=== PATIENT | male | born 1955 | race Caucasian/White ===

== ENCOUNTER 2020-09-12 06:04 | Outpatient (REF) | payer BC, SELFPAY ==
[2020-09-12 11:41] LABS: Hematocrit 44.6 % (42-52); Hemoglobin 14.3 g/dl (14.0-18.0); Mean Corpuscular HGB Conc 32.1 g/dl (31.0-36.0); Mean Corpuscular Hemoglobin 28.2 pg (27.0-33.0); Mean Platelet Volume 10.7 fL (9.4-12.4); Platelet Count 271 X10*3/uL (160-400); Red Blood Count 5.07 X10*6/uL (4.60-5.80); Red Cell Distribution Width 13.4 % (11.0-16.0); White Blood Count 6.3 X10*3/uL (4.8-10.8)
[2020-09-12 11:50] LABS: Alanine Aminotransferase 24 U/L (0-40); Albumin Level 4.2 g/dL (3.5-5.0); Alkaline Phosphatase 129 U/L (39-117); Anion Gap 13 (12-20); Aspartate Amino Transferase 16 U/L (5-37); Bilirubin Total 1.1 mg/dL (0.0-1.0); Blood Urea Nitrogen 19 mg/dL (9-16); Carbon Dioxide 29 mmol/L (22-29); Chloride 103 mmol/L (96-108); Cholesterol 179 mg/dL; Estimated Glomerular Filt Rate > 60; Glucose Fasting 89 mg/dL (60-99); HDL Cholesterol 61 mg/dL; LDL Cholesterol Calculated 103 mg/dl; Potassium 4.1 mmol/l (3.3-5.1); Sodium 141 mmol/L (135-145); Total Protein 6.9 g/dL (6.5-8.0); Triglycerides 78 mg/dL
[2020-09-12 12:10] LABS: Prostate Specific Antigen Scr 1.36 ng/mL (<0.05-4.0)
[2020-09-12 16:50] LABS: Glucose Urine UA NEG (NEG); Leukocyte Esterase Urine NEG (NEG); Nitrite Urine NEG (NEG); PH 5.5 (5.0-8.0); Specific Gravity - Urine >= 1.030 (1.005-1.025); Urine Blood NEG (NEG); Urine Ketones NEG (NEG); Urine Protein NEG (NEG-TRACE)
[2020-09-12 16:56] LABS: Appearance Urine CLEAR; Color Urine YELLOW
== END 2020-09-12 06:05 | disposition home or self-care (01) ==
LOC: HO.HMGCLDS 06:04
PROVIDERS: PCP Internal Medicine; Visit Provider Internal Medicine
DX: Z00.00 Encounter for general adult medical examination without abnormal findings (principal); I10 Essential (primary) hypertension; E78.2 Mixed hyperlipidemia
CPT/HCPCS: 36415; 80053; 80061; 81003; 84153; 85027

== ENCOUNTER → 2021-01-04 13:52 | Outpatient (BNVA) | payer OTHER, SELFPAY | PROVIDERS: PCP Internal Medicine; Visit Provider Urology | DX: R35.1 Nocturia (principal); R31.0 Gross hematuria; N40.1 Benign prostatic hyperplasia with lower urinary tract symptoms | CPT/HCPCS: 99202 ==

== ENCOUNTER 2021-01-22 06:22 | Outpatient (REF) | payer MEDICARE, OTHER, SELFPAY ==
[2021-01-22 11:11] LABS: Urine Cytology See Pathology rpt
[2021-01-22 11:39] LABS: Blood Urea Nitrogen 24 mg/dL (9-16); Estimated Glomerular Filt Rate > 60
== END 2021-01-22 06:23 | disposition home or self-care (01) ==
LOC: HO.HMGCLDS 06:22
PROVIDERS: PCP Internal Medicine; Visit Provider Urology
DX: R31.0 Gross hematuria (principal); N26.1 Atrophy of kidney (terminal)
CPT/HCPCS: 36415; 82565; 84520; 88112

== ENCOUNTER 2021-01-25 07:56 | Outpatient (REF) | payer MEDICARE, OTHER, SELFPAY ==
--- NOTE | ~2021-01-25 | CT_ITS ---
EXAMINATION: CT ABDOMEN AND PELVIS WITHOUT AND WITH CONTRAST CLINICAL INFORMATION: Gross hematuria. COMPARISON: None. TECHNIQUE: Noncontrast CT of the abdomen and pelvis is performed followed by split bolus contrast-enhanced images using 85 mL Omnipaque 350 contrast.? Postcontrast imaging is performed during the combined nephrogram and excretion phase. Sagittal and coronal reformatted images were obtained on the technologist's workstation for both the precontrast and postcontrast phases. This CT examination was performed using dose optimization techniques as appropriate, variously including the following: *Automated exposure control *Adjustment of mA and/or kV according to patient size (this includes techniques or standardized protocols for targeted exams where dose is matched to indication/reason for exam; i.e. extremities or head) *Use of iterative reconstruction technique DLP: 974 mGy-cm FINDINGS: LUNG BASES: The heart size is normal. The lung bases are clear. There is minimal bibasilar posterior pleural fatty deposition. LIVER, GALLBLADDER, AND BILIARY TREE: The liver is normal in size, shape, and attenuation. No focal hepatic lesion or biliary ductal dilatation is present. The gallbladder is unremarkable with no evidence of radiopaque gallstones, gallbladder wall thickening, or obvious pericholecystic inflammatory changes. PANCREAS: The pancreas is homogeneous in density and normal size. SPLEEN: Unremarkable. ADRENAL GLANDS: Unremarkable. KIDNEYS AND URETERS: On the noncontrast CT, there is no radiopaque renal or ureteral calculi. Postcontrast, there is normal symmetric bilateral nephrogram with 2.3 cm and 1.5 cm cysts midpole left kidney. No enhancing renal mass or hydronephrosis seen. The left kidney measures 11.5 cm in length and right kidney measures 11.22 cm in length. There is good opacification of bilateral kidney pelvises and ureters without any intraluminal filling defect or narrowing. BLADDER: Contrast opacified bladder is unremarkable. GASTROINTESTINAL TRACT: There is scattered stool, diverticula and gas seen throughout the colon without mural thickening. The small bowel loops are normal caliber. Appendix is normal caliber. No inflammatory process seen in the abdomen. ABDOMINAL WALL: There is a small umbilical hernia containing fat. The rest of the abdominal wall appears unremarkable. LYMPH NODES: Normal. VASCULAR: The abdominal aorta is of normal caliber. PELVIC VISCERA: The prostate gland is mildly enlarged measuring 6 cm in length and 5.9 cm wide. OSSEUS STRUCTURES: There is mild ventral spondylosis lower dorsal and upper lumbar spine. No lytic process seen. CT/CT urogram IMPRESSION: No radiopaque urolith, hydroureteronephrosis seen. There are left renal cysts. Moderate prostate enlargement extending to the base of bladder. No bladder wall thickening seen. Colonic diverticulosis without diverticulitis.
== END 2021-01-25 07:57 | disposition home or self-care (01) ==
LOC: HO.CT 07:56
PROVIDERS: PCP Internal Medicine; Visit Provider Urology
DX: R31.0 Gross hematuria (principal)
CPT/HCPCS: 74178; Q9967

== ENCOUNTER → 2021-02-16 13:53 | Outpatient (BNVA) | payer MEDICARE, OTHER, SELFPAY | PROVIDERS: PCP Internal Medicine; Visit Provider Urology | DX: Z13.9 Encounter for screening, unspecified (principal); N40.1 Benign prostatic hyperplasia with lower urinary tract symptoms | CPT/HCPCS: 52000; 99212 ==

== ENCOUNTER → 2021-06-19 13:25 | Outpatient (BNVA) | payer MEDICARE, OTHER, SELFPAY | PROVIDERS: PCP Internal Medicine; Referring Provider Internal Medicine; Visit Provider Urology | DX: N40.1 Benign prostatic hyperplasia with lower urinary tract symptoms (principal); N48.6 Induration penis plastica | CPT/HCPCS: 99212 ==

== ENCOUNTER → 2021-11-02 08:59 | Outpatient (BNVA) | payer SELFPAY | PROVIDERS: PCP Internal Medicine; Visit Provider Internal Medicine | DX: Z02.79 Encounter for issue of other medical certificate (principal) ==

== ENCOUNTER 2021-11-22 07:18 | Outpatient (REF) | payer MEDICARE, OTHER, SELFPAY ==
[2021-11-22 11:24] LABS: Hematocrit 44.6 % (42.0-52.0); Hemoglobin 14.7 g/dl (14.0-18.0); Mean Corpuscular Hemoglobin 28.3 pg (27.0-33.0); Mean Corpuscular Volume 85.9 fL (80.0-98.0); Platelet Count 241 X10*3/uL (160-400); Red Blood Count 5.19 X10*6/uL (4.60-5.80); Red Cell Distribution Width 13.3 % (11.0-16.0); White Blood Count 5.5 X10*3/uL (4.8-10.8)
[2021-11-22 12:28] LABS: Alanine Aminotransferase 19 U/L (0-40); Albumin Level 3.8 g/dL (3.5-5.0); Alkaline Phosphatase 122 U/L (39-117); Anion Gap 9 (12-20); Aspartate Amino Transferase 14 U/L (5-37); Bilirubin Total 0.9 mg/dL (0.0-1.0); Blood Urea Nitrogen 21 mg/dL (9-16); Calcium 9.2 mg/dL (8.4-10.2); Carbon Dioxide 29 mmol/L (22-29); Chloride 107 mmol/L (96-108); Cholesterol 170 mg/dL; Estimated Glomerular Filt Rate > 60; Glucose Fasting 98 mg/dL (60-99); HDL Cholesterol 57 mg/dL; LDL Cholesterol Calculated 98 mg/dl; Potassium 4.1 mmol/L (3.3-5.1); Sodium 141 mmol/L (135-145); Total Protein 6.5 g/dL (6.5-8.0); Triglycerides 76 mg/dL
== END 2021-11-22 07:19 | disposition home or self-care (01) ==
LOC: HO.HMGCLDS 07:18
PROVIDERS: PCP Internal Medicine; Visit Provider Internal Medicine
DX: I10 Essential (primary) hypertension (principal); E78.00 Pure hypercholesterolemia, unspecified; N40.1 Benign prostatic hyperplasia with lower urinary tract symptoms
CPT/HCPCS: 36415; 80053; 80061; 85027

== ENCOUNTER → 2021-12-21 09:24 | Outpatient (BNVA) | payer MEDICARE, OTHER, SELFPAY | PROVIDERS: PCP Internal Medicine; Visit Provider Urology | DX: N40.1 Benign prostatic hyperplasia with lower urinary tract symptoms (principal); R35.1 Nocturia; K59.00 Constipation, unspecified | CPT/HCPCS: 99212 ==

== ENCOUNTER 2022-01-14 10:55 | Day surgery (SDC) | payer MEDICARE, OTHER, SELFPAY ==
[2022-01-04 13:54] VITALS: BMI 31.9
--- NOTE | 2022-01-11 12:24 | P.CONAN_ITS ---
Documented by User: Cynthia Erickson NP 01/11/22 12:25 HPI - Anesthesia Eval Consult details Narrative: 66yo M for Laser Ablation Prostate w/Green Light PMFSH Active Problems Active Problems: All Active Problems (Updated 01/04/22 @ 13:45 by Liam New, RN) Sebastián hematuria (Acute) Gross hematuria (Acute) BPH loc w urin obs/LUTS (Acute) Nocturia more than twice per night (Acute) Peyronie's disease (Acute) Constipation (Acute) Colon cancer screening (Acute) Hypercholesterolemia (Acute) HTN (hypertension) (Acute) Past Medical History Medical History (Updated 01/04/22 @ 13:45 by Lima New, NEEL) Anxiety Colon cancer screening Generalized anxiety disorder HTN (hypertension) Hypercholesterolemia Obesity Squamous cell skin cancer, face Family History Family History Father S/P triple vessel bypass Liver failure Kidney failure CVD (cardiovascular disease) HTN (hypertension) Mother CVD (cardiovascular disease) Stroke Maternal Grandfather COPD (chronic obstructive pulmonary disease) Paternal Grandfather Pneumonia Sister No problems noted. Sister No problems noted. Son No problems noted. Surgical History Surgical History History of colonoscopy Social History Social History Housing: House Are you a primary daytime caregiver to a significant other at home: No Do you presently have visiting nurse or other home services: No Alcohol intake: current Alcohol intake frequency: does not drink Patient Tobacco Use Status: Never used Tobacco e-Cigarette/Vaping Use: Never Used Second Hand Smoke Exposure: No service: No Current occupational status: retired [employer] Allergies Allergy/AdvReac Type Severity Reaction Status Date / Time No Known Allergies Allergy Verified 01/04/22 13:34 Exam Exam Date and Time: January 11, 2022 1224 Height,Weight and Vital Signs: Height 5 ft 11 in Weight 103.873 kg Pertinent Lab Results Pertinent Lab Results: Laboratory Tests 11/22/21 11/22/21 07:42 07:42 WBC 5.5 Hgb 14.7 Hct 44.6 Plt Count 241 Sodium 141 Potassium 4.1 Chloride 107 Carbon Dioxide 29 BUN 21 H Creatinine 1.11 Assessment and Plan Assessment Anesthesia Assessment: Chart Reviewed Documented by User: Bob Richardson MD 01/14/22 16:14 [facility] Past Medical History Medical History (Updated 01/04/22 @ 13:45 by Lima New, NEEL) Anxiety Colon cancer screening Generalized anxiety disorder HTN (hypertension) Hypercholesterolemia Obesity Squamous cell skin cancer, face Functional capacity: independent ambulation Family History Family History Father S/P triple vessel bypass Liver failure Kidney failure CVD (cardiovascular disease) HTN (hypertension) Mother CVD (cardiovascular disease) Stroke Maternal Grandfather COPD (chronic obstructive pulmonary disease) Paternal Grandfather Pneumonia Sister No problems noted. Sister No problems noted. Son No problems noted. Family history of problems with anesthesia: No Surgical History Surgical History History of colonoscopy History of Problems with Anesthesia: No Social History Social History Housing: House Are you a primary daytime caregiver to a significant other at home: No Do you presently have visiting nurse or other home services: No Alcohol intake: current Alcohol intake frequency: does not drink Patient Tobacco Use Status: Never used Tobacco e-Cigarette/Vaping Use: Never Used Second Hand Smoke Exposure: No service: No Current occupational status: retired Meds Allergies Allergy/AdvReac Type Severity Reaction Status Date / Time No Known Allergies Allergy Verified 01/04/22 13:34 Exam Airway Mallampati Class: II TM Dist: >3cm Neck ROM: Full Loose/Missing/Broken Teeth: Yes Heart: rrr Lungs: bl breath sounds Assessment and Plan Assessment Anesthesia Assessment: Anesthesia Plan Discussed Final Anesthetic Review Family History of Problems with Anesthesia: No History of Problems with Anesthesia: No NPO: Yes ASA Class: III Final Preanesthetic Review: Meds/Allgs Chart Reviewed, Consent Obtained/Reviewed and Anes Risks/Benef Reviewed Patient Risk: Intermediate Procedure Risk: Intermediate Anesthetic Plan Anesthetic Plan: GA Disposition: Standard PACU
[2022-01-14] VITALS (7 sets, daily range): BP systolic 122–152; BP diastolic 69–101; PULSE 74–99; RESP 16–18; TEMP 36.7–37.1; O2SAT 93–98
[2022-01-14] MEDS: Lactated Ringers 1,000 ML 100 ML IVCONT (11:15)
--- NOTE | 2022-01-14 11:32 | MHC.SHP ---
Pre-Procedural Eval Section A Date of Service: 01/14/22 The patient is an INPATIENT: No Changes since office visit: No Cold of Flu in the past 2 weeks, No New Medical Problems, No Changes in Medication and No Patient answered all questions The History & Physical has been completed within 30 days and I have reviewed it.: No Section B Chief Complaint: benign prostatic hyperplasia Details of Present Illness: failed to respond to oral medications Relevant Family History (Specify if Yes): No Relevant Social History: None Present Medications: see Short Stay Collaborative assessment Medical History: No relevant PMH History of Previous Operations: No relevant previous surgery Allergies: Allergies Allergy/AdvReac Type Severity Reaction Status Date / Time No Known Allergies Allergy Verified 01/04/22 13:34 Review of Systems Sugical H&P ROS: Negative: Constitution, Cardiovascular, Respiratory, Neurological, Psychiatric, Hem-Onc, Allergic/Immunologic, Gastrointestinal, Genitourinary, Musculoskeletal, Integumentary, Endocrine and Eyes/Ears/Nose/Throat Exam Surgical H&P Exam: Normal: HEENT, Normal: Heart, Normal: Lungs, Normal: Extremities, Normal: Abdomen, Normal: Skin and Normal: Neurological Plan Diagnosis/Plan: Unchanged ( cystoscopy with GreenLight laser enucleation of prostate) I have reviewed the history and physical and performed a pertinent physical examination on my patient. No changes have occurred unless specified.
--- NOTE | 2022-01-14 12:55 | W.PM.OPN ---
Operative Note Operative Note Date of Service: 01/14/22 Narrative: PreOperative Diagnosis: Bladder outlet obstruction Post Operative Diagnosis: Bladder outlet obstruction Procedure: GreenLight Laser Enucleation of the prostate Surgeon: Dr Ovidio Marin Anesthesia: General Indications for procedure: 66-year-old male with poor response now to History of bladder outlet obstruction. Treated with alpha-jocelyn and other medications. Still with symptoms. On cystoscopy in office has trilobar hypertrophy. Recommendation for prostate procedure with laser enucleation of prostate. It has been discussed. Focus was placed on development of retrograde examination which is a normal part of this procedure. Procedure: After informed consent was verified the patient was brought to the operating room and placed in a supine position. Anesthesia was administered per protocol. Patient was placed in modified dorsal lithotomy position and prepped and draped in a sterile fashion. Safety pause time-out was confirmed. Antibiotics have been given. Twenty-four Bulgarian laser cystoscope was inserted per urethra. No abnormalities found the anterior posterior urethra. The bladder was filled on both ureteric orifices were seen in normal position away from our area of interest. Using a GreenLight laser settings of 80 w incisions were made at the 5 and 7 o'clock position. They were taken down and then laterally on each side. They were brought from the bladder neck down to the level of the veru. These defined the lateral aspects of the median lobe area. The median lobe was ablated and enucleated tissue removed. Once the median lobe area had been cleaned attention was directed to the lateral lobes. We started with the patient's left lateral lobe. Firstly the 05:00 o'clock groove was further developed. This was moved in the lateral position to undermine the tissue on the lateral side. Focus was then placed on the laser at the 1 o'clock position in developing a secondary groove down to the level of bladder fibers. The intervening tissue between these 2 grooves was removed with a combination of enucleation ablation working from the apex toward the bladder neck. A similar procedure was repeated on the patient's right-hand side. When this was completed debris and pieces of prostate removed from the bladder. Both ureteric orifices were reviewed again in shown to be patent in away from any areas of energy damage. The apical area was reviewed in any stray ooze was controlled. A 22 Bulgarian 30 cc balloon Maria catheter was placed over stylet into the bladder. Clear efflux was obtained. 30 cc was placed in the balloon and gentle traction was placed. A snap was used to hold tension once the patient will be moved and transported. Once transportation its finish this novel be removed. A belladonna and opiate suppository was placed for postprocedure pain management. He tolerated procedure well was extubated in the operating and transferred in a stable condition to the recovery area. Total power 197 kW Pathology: Prostate tissue Drains: Maria catheter
[2022-01-14] MEDS: Acetaminophen 325 MG TABLET 650 MG PO (13:15)
== END 2022-01-14 14:23 | disposition home or self-care (01) ==
PROVIDERS: PCP Internal Medicine; Visit Provider Urology
PROC: (CPT 52648; principal; 2022-01-14 13:10)
DX: N40.1 Benign prostatic hyperplasia with lower urinary tract symptoms (principal); R35.1 Nocturia; N13.8 Other obstructive and reflux uropathy; R31.0 Gross hematuria; K59.00 Constipation, unspecified; N28.1 Cyst of kidney, acquired; I10 Essential (primary) hypertension; E78.00 Pure hypercholesterolemia, unspecified; Z85.828 Personal history of other malignant neoplasm of skin; Z79.899 Other long term (current) drug therapy
CPT/HCPCS: 52649; 88305; J1100; J1956; J2250; J2370; J2405; J3010

== ENCOUNTER → 2022-01-17 09:55 | Outpatient (BNVA) | payer MEDICARE, OTHER, SELFPAY | PROVIDERS: PCP Internal Medicine; Visit Provider Urology | DX: N40.1 Benign prostatic hyperplasia with lower urinary tract symptoms (principal) | CPT/HCPCS: 51700; 51798 ==

== ENCOUNTER → 2022-02-19 10:42 | Outpatient (BNVA) | payer MEDICARE, OTHER, SELFPAY | PROVIDERS: PCP Internal Medicine; Visit Provider Urology | DX: N40.1 Benign prostatic hyperplasia with lower urinary tract symptoms (principal); R35.1 Nocturia; R39.12 Poor urinary stream | CPT/HCPCS: 51798; 99212 ==

== ENCOUNTER 2022-06-03 08:46 | Outpatient (REF) | payer MEDICARE, OTHER, SELFPAY ==
[2022-06-03 11:38] LABS: Anion Gap 11 (12-20); Blood Urea Nitrogen 25 mg/dL (9-16); Calcium 8.8 mg/dL (8.4-10.2); Carbon Dioxide 27 mmol/L (22-29); Chloride 107 mmol/L (96-108); Estimated Glomerular Filt Rate > 60; Glucose Random 82 mg/dL (60-115); Potassium 3.9 mmol/L (3.3-5.1); Sodium 141 mmol/L (135-145)
== END 2022-06-03 08:47 | disposition home or self-care (01) ==
LOC: HO.HMGCLDS 08:46
PROVIDERS: PCP Internal Medicine; Visit Provider Internal Medicine
DX: E78.00 Pure hypercholesterolemia, unspecified (principal); I10 Essential (primary) hypertension
CPT/HCPCS: 36415; 80048

== ENCOUNTER 2022-09-17 06:51 | Outpatient (REF) | payer MEDICARE, OTHER, SELFPAY ==
[2022-09-17 13:34] LABS: Prostate Specific Antigen 0.65 ng/mL (<0.05-4.0)
== END 2022-09-17 06:52 | disposition home or self-care (01) ==
LOC: HO.CHCLDS 06:51
PROVIDERS: PCP Internal Medicine; Visit Provider Urology
DX: N40.1 Benign prostatic hyperplasia with lower urinary tract symptoms (principal); N13.8 Other obstructive and reflux uropathy; Z12.5 Encounter for screening for malignant neoplasm of prostate
CPT/HCPCS: 36415; 84153

== ENCOUNTER → 2022-09-27 08:55 | Outpatient (BNVA) | payer MEDICARE, OTHER, SELFPAY | PROVIDERS: PCP Internal Medicine; Visit Provider Urology | DX: N40.1 Benign prostatic hyperplasia with lower urinary tract symptoms (principal); R39.12 Poor urinary stream; R35.1 Nocturia | CPT/HCPCS: Q3014 ==

== ENCOUNTER 2023-01-30 07:00 | Outpatient (REF) | payer MEDICARE, OTHER, SELFPAY | END 2023-01-30 07:01 | disposition home or self-care (01) | LOC: HO.HMGCLDS 07:00 | PROVIDERS: PCP Internal Medicine; Visit Provider Urology | DX: Z12.5 Encounter for screening for malignant neoplasm of prostate (principal); N40.1 Benign prostatic hyperplasia with lower urinary tract symptoms | CPT/HCPCS: 36415; 84153 ==

== ENCOUNTER → 2023-02-04 14:07 | Outpatient (BNVA) | payer MEDICARE, OTHER, SELFPAY | PROVIDERS: PCP Internal Medicine; Visit Provider Urology | DX: N40.1 Benign prostatic hyperplasia with lower urinary tract symptoms (principal); N13.8 Other obstructive and reflux uropathy; R35.1 Nocturia; N48.6 Induration penis plastica | CPT/HCPCS: 51798; 99212 ==

== ENCOUNTER 2023-09-08 08:29 | Outpatient (REF) | payer MEDICARE, OTHER, SELFPAY ==
[2023-09-08 11:42] LABS: MANUAL DIFF FLAG NO
[2023-09-08 12:13] LABS: Alanine Aminotransferase 25 U/L (0-40); Albumin Level 3.9 g/dL (3.5-5.0); Alkaline Phosphatase 125 U/L (39-117); Anion Gap 11 (12-20); Aspartate Amino Transferase 20 U/L (5-37); Bilirubin Total 0.8 mg/dL (0.0-1.0); Blood Urea Nitrogen 20 mg/dL (9-16); Calcium 9.4 mg/dL (8.4-10.2); Carbon Dioxide 28 mmol/L (22-29); Chloride 107 mmol/L (96-108); Cholesterol 176 mg/dL (<200); Estimated Glomerular Filt Rate > 60; Glucose Fasting 87 mg/dL (60-99); HDL Cholesterol 53 mg/dL (>40); LDL Cholesterol Calculated 106 mg/dL (<100); Potassium 4.2 mmol/L (3.3-5.1); Sodium 142 mmol/L (135-145); Total Protein 6.8 g/dL (6.5-8.0); Triglycerides 88 mg/dL (<150)
[2023-09-08 12:22] LABS: Basophils Absolute Auto 0.1 X10*3/uL (0.0-0.2); Basophils Percent Auto 1.3 % (0-2); Eosinophils Absolute Auto 0.1 X10*3/uL (0.0-0.4); Eosinophils Percent Auto 1.8 % (0-4); Hematocrit 44.7 % (42.0-52.0); Hemoglobin 14.7 g/dl (14.0-18.0); Imm Gran Abs Auto 0.02 X10*3/uL (0.00-0.03); Imm Gran Pct Auto 0.3 % (0.0-0.4); Lymphocytes Absolute Auto 1.9 X10*3/uL (1.2-4.9); Lymphocytes Percent Auto 26.7 % (20-40); Mean Corpuscular HGB Conc 32.9 g/dl (31.0-36.0); Mean Corpuscular Hemoglobin 28.6 pg (27.0-33.0); Mean Platelet Volume 10.7 fL (9.4-12.4); Monocytes Absolute Auto 0.5 X10*3/uL (0.1-1.2); Monocytes Percent Auto 6.7 % (2-11); Neutrophils Absolute Auto 4.4 x10*3/uL (2.0-8.3); Neutrophils Percent Auto 63.2 % (45-73); Platelet Count 270 X10*3/uL (160-400); Red Blood Count 5.14 X10*6/uL (4.60-5.80); Red Cell Distribution Width 13.4 % (11.0-16.0)
== END 2023-09-08 08:30 | disposition home or self-care (01) ==
LOC: HO.HMGCLDS 08:29
PROVIDERS: PCP Internal Medicine; Visit Provider Internal Medicine
DX: I10 Essential (primary) hypertension (principal); E78.00 Pure hypercholesterolemia, unspecified
CPT/HCPCS: 36415; 80053; 80061; 85025

== ENCOUNTER 2023-09-09 11:06 | Outpatient (AMB) | payer MEDICARE, OTHER, SELFPAY ==
[2023-09-09 11:14] VITALS: BP 128/84; PULSE 84; O2SAT 96; BMI 31.8
--- NOTE | 2023-09-09 11:14 | A.OFFPC_ITS ---
Vital Signs 09/09/23 11:14 Height 5 ft 11 in Weight 228 lb BMI 31.8 BP 128/84 Blood Pressure Location Lt brachial Position Sitting Pulse 84 Pulse Source Pulse Oximeter Pulse Oximetry (%) 96 Oxygen Delivery Method Room Air Intake Visit Reasons: 9 month f/u Intake Note: Pt is here today for a follow up visit after labs. Allergies No Known Allergies Allergy (Verified 09/09/23 11:16) Medication List - Last Reconciled 09/09/23 by Kerry Mooney MD amlodipine 5 mg PO DAILY atorvastatin 20 mg PO DAILY olmesartan 20 mg PO DAILY paroxetine HCl 10 mg PO DAILY Tobacco use date assessed: 09/09/23 Fall risk assessment: No Falls in past year Last assessed Fall Risk: 09/09/23 Dental Screening Dental Screen Date: 09/09/23 Did you have a dental visit in the last 12 months?: Yes Did you have a dental problem in the last 6 months where you did not have access to dental care?: No Was dental information given to patient?: Patient has dentist HPI 9 month f/u HPI Details Patient presents for the follow-up of hypertension hyperlipidemia. [facility] Medical History (Updated 09/09/23 @ 12:43 by Kerry Mooney MD) Anxiety Colon cancer screening Squamous cell skin cancer, face Obesity Generalized anxiety disorder Hypercholesterolemia HTN (hypertension) Surgical History History of colonoscopy Family History Father S/P triple vessel bypass Liver failure Kidney failure CVD (cardiovascular disease) HTN (hypertension) Mother CVD (cardiovascular disease) Stroke Maternal Grandfather COPD (chronic obstructive pulmonary disease) Paternal Grandfather Pneumonia Sister No problems noted. Sister No problems noted. Son No problems noted. Social History Housing: House Are you a primary hospice care sales consultant to a significant other at home: No Do you presently have visiting nurse or other home services: No Alcohol intake: current Alcohol intake frequency: does not drink Patient Tobacco Use Status: Never used Tobacco e-Cigarette/Vaping Use: Never Used Second Hand Smoke Exposure: No service: No Current occupational status: retired Cognitive needs: No Hearing needs: No Vision needs: No Questionnaire Thrive Questionnaire Date Thrive assessed: 12/04/21 AUDIT C Alcohol Use Questionnaire (AUDIT-C) 1. How often do you have a drink containing alcohol?: 2-4 times a month 2. How many drinks containing alcohol do you have on a typical day when you are drinking?: 1 or 2 3. How often do you have six or more drinks on one occasion?: Never Total Score: 2 LILIA-7 AMB Questionnaire LILIA-7 Date LILIA - 7 assessed: 12/02/22 Feeling nervous, anxious, or on edge: 0 = Not at all Not being able to stop or control worryin = Not at all Worrying too much about different things: 0 = Not at all Trouble relaxin = Not at all Being so restless that it is hard to sit still: 0 = Not at all Becoming easily annoyed or irritable: 0 = Not at all Feeling afraid as if something awful might happen: 0 = Not at all Total ILLIA-7 score (0-4 normal; 5-9 mild; 10-14 moderate; 15-21 severe): 0 Source: Developed by Drs. Rafa Dee, Blaire Mas, Rc Ying and colleagues, with an educational mayelin from [employer]. Review of Systems Const All systems reviewed & are unremarkable except as noted in HPI and below Reports no additional complaints Eyes Reports no additional complaints ENT Reports no additional complaints Card Reports no additional complaints Resp Reports no additional complaints GI Reports no additional complaints Reports no additional complaints Physical exam (Primary Care) Vital Signs: Last Vital Signs Pulse 84 09/09/23 11:14 BP 128/84 09/09/23 11:14 Pulse Ox 96 09/09/23 11:14 Oxygen Delivery Method Room Air 09/09/23 11:14 BMI result Body Mass Index 31.8 Tobacco/Smoking Status: Tobacco use Status Tobacco use date assessed 09/09/23 09/09/23 11:18 Patient Tobacco Use Status Never used Tobacco 09/09/23 11:18 e-Cigarette/Vaping Use Never Used 09/09/23 11:18 Thrive Assessment: Date of Thrive Assessment Date Thrive assessed 12/04/21 09/09/23 11:18 Const General: no acute distress Neck Neck: Yes no lymphadenopathy and Yes supple Resp Effort & Inspection: normal respiratory effort Auscultation: clear to auscultation bilaterally Cardio Rhythm: regular rhythm Heart sounds: S1 normal heart sound present and S2 normal heart sound present GI Inspection: Yes normal to inspection Palpation (GI): Soft to palpation Percussion: Yes normal to percussion Auscultation: normal bowel sounds Assessment and Plan Assessment & Plan (1) Hypercholesterolemia: Code(s): E78.00 - Pure hypercholesterolemia, unspecified Plan: Increase atorvastatin to 20 mg a day, continue low-cholesterol diet regular exercise and weight loss discussed with the patient (2) HTN (hypertension): Code(s): I10 - Essential (primary) hypertension Plan: Continue current medications. Patient will have CT calcium score to evaluate for coronary artery disease (3) Colon cancer screening: Comment: negative alda 09/2019, 01/09 Code(s): Z12.11 - Encounter for screening for malignant neoplasm of colon Orders: Orders Lipid Panel 6 Months E78.00 - Pure hypercholesterolemia, unspecified, I10 - Essential (primary) hypertension CT Coronary Calcium Score Today E78.00 - Pure hypercholesterolemia, unspecified, I10 - Essential (primary) hypertension Comprehensive Orange. Panel Fast 6 Months E78.00 - Pure hypercholesterolemia, unspecified, I10 - Essential (primary) hypertension Complete Blood Count Auto Diff 6 Months E78.00 - Pure hypercholesterolemia, unspecified, I10 - Essential (primary) hypertension Medications: New atorvastatin 20 mg PO DAILY 90 tabs 0RF Discontinued atorvastatin Discontinued Reason: Duplicate 10 mg PO DAILY 90 tabs 3RF E78.00 - Pure hypercholesterolemia, unspecified Coding Level of Care Code Est Pt Level 3 (99526) Diagnoses Hypercholesterolemia E78.00 HTN (hypertension) I10 Colon cancer screening Z12.11
== END 2023-09-09 12:22 | disposition home or self-care (01) ==
PROVIDERS: PCP Internal Medicine; Visit Provider Internal Medicine
DX: E78.00 Pure hypercholesterolemia, unspecified (principal); I10 Essential (primary) hypertension; Z12.11 Encounter for screening for malignant neoplasm of colon
CPT/HCPCS: 99213

== ENCOUNTER 2024-02-06 07:14 | Outpatient (REF) | payer MEDICARE, OTHER, SELFPAY ==
[2024-02-06 11:19] LABS: Prostate Specific Antigen 0.88 ng/mL (<0.05-4.0)
== END 2024-02-06 07:15 | disposition home or self-care (01) ==
LOC: HO.HMGCLDS 07:14
PROVIDERS: PCP Internal Medicine; Visit Provider Urology
DX: Z12.5 Encounter for screening for malignant neoplasm of prostate (principal); N40.1 Benign prostatic hyperplasia with lower urinary tract symptoms
CPT/HCPCS: 36415; 51798; 84153; 99212

== ENCOUNTER 2024-02-06 08:20 | Outpatient (AMB) | payer MEDICARE, OTHER, SELFPAY ==
--- NOTE | 2024-02-06 08:21 | A.OFFVIS_ITS ---
Intake Intake Visit Reasons: 1y/PVR Intake Note: Patient is Present for Follow Up PVR Last Visit: January 2023 Urology Medication: None Antibiotic Allergies: None Blood Thinners:None Confirmed Pharmacy: [facility] PVR: 82 Allergies No Known Allergies Allergy (Verified 02/06/24 08:22) Medication List - Last Reconciled 02/06/24 by Ovidio Marin MD amlodipine 5 mg PO DAILY atorvastatin 20 mg PO DAILY olmesartan 20 mg PO DAILY paroxetine HCl 10 mg PO DAILY HPI HPI Comments History of Present Illness Details Cayden is a very pleasant male. He is a patient of Dr. Joseph. He is seen for the following urologic issues - lower urinary tract symptoms - gross hematuria - erectile dysfunction Concerns regarding leakage at the end of urination Information provided regarding male pelvic floor exercises Progressive erectile dysfunction which we had discussed previously Initiate tadalafil and pentoxifylline for Peyronie's Three-month follow-up Gross hematuria Episode October 2020 Resolved after 3 voids with urine Hematuria at the end of urination Risk factors Nonsmoker No known work place exposure. 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 [employer] - CT 02/04 renal cyst 2 cm cyst right side, left side normal Lower urinary tract symptoms Greenlight ARA - 02/05 Prior therapy tamsulosin not effective Cystoscopy - 02/04 enlarged prostate with neovascularity PSA 09/05 1.4, 10/08 0.65, 02/06 0.8 Peyronie's disease 40 degree deviation to right-side Printed information provided previously [facility] Medical History Anxiety Colon cancer screening Squamous cell skin cancer, face Obesity Generalized anxiety disorder Hypercholesterolemia HTN (hypertension) Surgical History History of colonoscopy Family History Father S/P triple vessel bypass Liver failure Kidney failure CVD (cardiovascular disease) HTN (hypertension) Mother CVD (cardiovascular disease) Stroke Maternal Grandfather COPD (chronic obstructive pulmonary disease) Paternal Grandfather Pneumonia Sister No problems noted. Sister No problems noted. Son No problems noted. Social History Housing: House Are you a primary child care worker to a significant other at home: No Do you presently have visiting nurse or other home services: No Alcohol intake: current Alcohol intake frequency: does not drink Patient Tobacco Use Status: Never used Tobacco e-Cigarette/Vaping Use: Never Used Second Hand Smoke Exposure: No service: No Current occupational status: retired Cognitive needs: No Hearing needs: No Vision needs: No Review of Systems Const Denies chills and Denies fever(s) Card Reports no additional complaints and Denies syncope Resp Denies cough GI Denies abdominal pain and Denies heartburn Reports as per HPI and Denies change in libido Neuro Denies syncope Psych Denies change in libido Endo Denies change in libido Physical Exam Const General: cooperative, healthy appearing, comfortable and no acute distress Orientation/consciousness: patient oriented x3 HEENT Face and sinus: Yes normal facial exam Mouth: moist mucous membranes Neck Neck: Yes normal visual inspection, Yes full ROM and Yes trachea midline Chest Chest palpation & inspection: normal inspection of the chest Resp Effort & Inspection: normal respiratory effort, able to speak in complete sentences and no respiratory distress GI Inspection: Yes normal to inspection Back/Spine/Pelvis Cervical Spine: normal cervical lordosis Thoracic/Lumbar Spine: thoracic and lumbar spine normal to inspection Skin General skin exam: no rashes or lesions noted Neuro General: patient oriented x3, gait normal, tone normal and moves all extremities Extrem General: Yes normal to inspection and Yes capillary refill normal Office Procedures Post Void Residual Post Residual Void Post Void Residual (PVR): 82 [id number] Void Residual by ultrasound Assessment & Plan Assessment & Plan (1) Erectile dysfunction: Code(s): N52.9 - Male erectile dysfunction, unspecified (2) Weak urinary stream: Code(s): R39.12 - Poor urinary stream (3) Peyronie's disease: Code(s): N48.6 - Induration penis plastica Plan Trial tadalafil and pentoxifylline Orders: Orders AMB Post Void Residual by ultrasound Today N40.1 - Benign prostatic hyperplasia with lower urinary tract symptoms Medications: New tadalafil 5 mg PO DAILY 90 tabs 0RF sexual activity 90 days N52.9 - Male erectile dysfunction, unspecified pentoxifylline ER administer with meals 400 mg PO BID 180 tabs 1RF 90 days N52.9 - Male erectile dysfunction, unspecified Patient Instructions: Imaging studies, laboratory and physical exam results were discussed and reviewed in detail. No major barriers to patient understanding were identified. An opportunity to ask questions regarding the treatment plan was provided. All questions were answered. The patient expressed understanding and agreement with the above treatment plan. The patient is aware they should contact our office by phone for worsening of their current condition or the appearance of new urologic symptoms. Compliance is encouraged with any medications and followup testing that is ordered. It is a privilege to participate in the urologic care of your patient. If you have any questions or concerns regarding treatment for the above conditions, or other urologic issues, please do not hesitate to contact me. The office telephone contact is [phone]. This note is constructed using voice recognition software. While every effort has been made to ensure accuracy licensed and certified midwife errors may have been included. Yours sincerely, Dr Ovidio Marin MD, [facility] - Urology Providers of Expert, Compassionate Care for the Genitourinary System Coding Level of Care Code Est Pt Level 4 (83108) Diagnoses Erectile dysfunction N52.9 Weak urinary stream R39.12 Peyronie's disease N48.6 CPT Codes Post Residual Void - PVR CPT Code: [id number] Void Residual by ultrasound ([id number])
== END 2024-02-06 08:58 | disposition home or self-care (01) ==
PROVIDERS: Visit Provider Urology
DX: N52.9 Male erectile dysfunction, unspecified (principal); R39.12 Poor urinary stream; N48.6 Induration penis plastica
CPT/HCPCS: 99214

== ENCOUNTER 2024-03-17 08:10 | Outpatient (REF) | payer MEDICARE, OTHER, SELFPAY ==
[2024-03-17 10:36] LABS: MANUAL DIFF FLAG NO
[2024-03-17 10:42] LABS: Hematocrit 44.9 % (42.0-52.0); Imm Gran Abs Auto 0.03 X10*3/uL (0.00-0.03); Lymphocytes Absolute Auto 1.7 X10*3/uL (1.2-4.9); Mean Corpuscular Hemoglobin 28.9 pg (27.0-33.0); Mean Corpuscular Volume 86.5 fL (80.0-98.0); Platelet Count 262 X10*3/uL (160-400); Red Blood Count 5.19 X10*6/uL (4.60-5.80); White Blood Count 7.4 X10*3/uL (4.8-10.8)
[2024-03-17 11:28] LABS: Alkaline Phosphatase 134 U/L (39-117); Bilirubin Total 0.8 mg/dL (0.0-1.0); Blood Urea Nitrogen 20 mg/dL (9-16); Calcium 9.3 mg/dL (8.4-10.2); Chloride 106 mmol/L (96-108); Cholesterol 150 mg/dL (<200); Estimated Glomerular Filt Rate > 60; Glucose Fasting 88 mg/dL (60-99); HDL Cholesterol 49 mg/dL (>40); LDL Cholesterol Calculated 84 mg/dL (<100); Potassium 4.2 mmol/L (3.3-5.1); Sodium 143 mmol/L (135-145); Triglycerides 89 mg/dL (<150)
== END 2024-03-17 08:11 | disposition home or self-care (01) ==
LOC: HO.HMGCLDS 08:10
PROVIDERS: PCP Internal Medicine; Visit Provider Internal Medicine
DX: E78.00 Pure hypercholesterolemia, unspecified (principal); I10 Essential (primary) hypertension
CPT/HCPCS: 36415; 80053; 80061; 85025

== ENCOUNTER 2024-03-19 09:52 | Outpatient (AMB) | payer MEDICARE, OTHER, SELFPAY ==
--- NOTE | 2024-03-19 09:54 | MHC.PC.OV ---
Vital Signs 03/19/24 09:55 Height 5 ft 11 in Weight 225 lb BMI 31.4 BP 118/72 Blood Pressure Location Rt brachial Position Sitting Pulse 78 Pulse Source Pulse Oximeter Pulse Oximetry (%) 95 Oxygen Delivery Method Room Air Intake Visit Reasons: 6 Month follow up Intake Note: Pt is here today for 6 months follow up visit. Allergies No Known Allergies Allergy (Verified 03/19/24 09:57) Medication List - Last Reconciled 03/19/24 by Kerry Mooney MD amlodipine 5 mg PO DAILY atorvastatin 20 mg PO DAILY olmesartan 20 mg PO DAILY paroxetine HCl 10 mg PO DAILY pentoxifylline ER 400 mg PO BID 90 days tadalafil 5 mg PO DAILY 90 days Tobacco use date assessed: 03/19/24 Fall risk assessment: No Falls in past year Last assessed Fall Risk: 03/19/24 Dental Screening Dental Screen Date: 03/19/24 Did you have a dental visit in the last 12 months?: Yes Did you have a dental problem in the last 6 months where you did not have access to dental care?: No Was dental information given to patient?: Patient has dentist HPI 6 Month follow up HPI Details Patient presents for the follow-up on hypertension hyperlipidemia chronic anxiety stable on current medications. Patient follows up with urologist for BPH/ urinary incontinence/Peyronie disease. Patient complains of right-sided upper thigh pain worse when walking longer distance. He denies lower back pain,weakness or numbness in extremities PFSH Medical History Anxiety Colon cancer screening Squamous cell skin cancer, face Obesity Generalized anxiety disorder Hypercholesterolemia HTN (hypertension) Surgical History History of colonoscopy Family History Father S/P triple vessel bypass Liver failure Kidney failure CVD (cardiovascular disease) HTN (hypertension) Mother CVD (cardiovascular disease) Stroke Maternal Grandfather COPD (chronic obstructive pulmonary disease) Paternal Grandfather Pneumonia Sister No problems noted. Sister No problems noted. Son No problems noted. Social History Housing: House Are you a primary director medicare sales to a significant other at home: No Do you presently have visiting nurse or other home services: No Alcohol intake: current Alcohol intake frequency: does not drink Patient Tobacco Use Status: Never used Tobacco e-Cigarette/Vaping Use: Never Used Second Hand Smoke Exposure: No service: No Current occupational status: retired Cognitive needs: No Hearing needs: No Vision needs: No Questionnaire Thrive Questionnaire Date Thrive assessed: 12/04/21 AUDIT C Alcohol Use Questionnaire (AUDIT-C) 1. How often do you have a drink containing alcohol?: 2-4 times a month 3. How often do you have six or more drinks on one occasion?: Never Total Score: 2 LILIA-7 AMB Questionnaire LILIA-7 Date LILIA - 7 assessed: 12/02/22 Feeling nervous, anxious, or on edge: 0 = Not at all Not being able to stop or control worryin = Not at all Worrying too much about different things: 0 = Not at all Trouble relaxin = Not at all Being so restless that it is hard to sit still: 0 = Not at all Becoming easily annoyed or irritable: 0 = Not at all Feeling afraid as if something awful might happen: 0 = Not at all Total LILIA-7 score (0-4 normal; 5-9 mild; 10-14 moderate; 15-21 severe): 0 Source: Developed by Drs. Rafa Dee, Blaire Mas, Rc Ying and colleagues, with an educational mayelin from [employer]. Review of Systems Const All systems reviewed & are unremarkable except as noted in HPI and below Eyes Reports no additional complaints ENT Reports no additional complaints Card Reports no additional complaints Resp Reports no additional complaints GI Reports no additional complaints Reports no additional complaints Physical exam (Primary Care) Vital Signs: Last Vital Signs Pulse 78 03/19/24 09:55 BP 118/72 03/19/24 09:55 Pulse Ox 95 03/19/24 09:55 Oxygen Delivery Method Room Air 03/19/24 09:55 BMI result Body Mass Index 31.4 Tobacco/Smoking Status: Tobacco use Status Tobacco use date assessed 03/19/24 03/19/24 10:00 Patient Tobacco Use Status Never used Tobacco 03/19/24 10:00 e-Cigarette/Vaping Use Never Used 03/19/24 09:55 Thrive Assessment: Date of Thrive Assessment Date Thrive assessed 12/04/21 03/19/24 09:55 Const General: no acute distress HENMT Head: Yes normal to inspection Ears: hearing grossly normal bilaterally General nose exam: Normal external nose present Face and sinus: Yes normal facial exam Mouth: Normal oral and palatal mucosa present Teeth and gingiva: dentition normal Eyes General: appearance normal, both eyes and all related structures Neck Neck: Yes no lymphadenopathy and Yes supple Resp Effort & Inspection: normal respiratory effort Auscultation: clear to auscultation bilaterally Cardio Rhythm: regular rhythm Heart sounds: S1 normal heart sound present and S2 normal heart sound present GI Inspection: Yes normal to inspection Palpation (GI): Soft to palpation Percussion: Yes normal to percussion Auscultation: normal bowel sounds Extrem Other: Both hips with full range of motion slight right trochanteric area tenderness, no soft tissue swelling Assessment and Plan Assessment & Plan (1) Hip pain, bilateral: Code(s): M25.551 - Pain in right hip; M25.552 - Pain in left hip Plan: Check x-rays of both hips regular stretching exercises were recommended. if the pain persists patient will be referred to physical therapy (2) Hypercholesterolemia: Code(s): E78.00 - Pure hypercholesterolemia, unspecified Plan: Continue statin (3) HTN (hypertension): Code(s): I10 - Essential (primary) hypertension Plan: Continue olmesartan and amlodipine follow-up in 6 months with a fasting labs before Orders: Orders XR hips ZEHRA min 3V Today M25.551 - Pain in right hip, M25.552 - Pain in left hip Comprehensive [place]. Panel Fast 6 Months E78.00 - Pure hypercholesterolemia, unspecified, I10 - Essential (primary) hypertension Lipid Panel 6 Months E78.00 - Pure hypercholesterolemia, unspecified, I10 - Essential (primary) hypertension Complete Blood Count Auto Diff 6 Months E78.00 - Pure hypercholesterolemia, unspecified, I10 - Essential (primary) hypertension Coding Level of Care Code Est Pt Level 4 (22479) Diagnoses Hip pain, bilateral M25.551; M25.552 Hypercholesterolemia E78.00 HTN (hypertension) I10
[2024-03-19 09:55] VITALS: BP 118/72; PULSE 78; O2SAT 95; BMI 31.4
== END 2024-03-19 11:04 | disposition home or self-care (01) ==
PROVIDERS: PCP Internal Medicine; Visit Provider Internal Medicine
DX: M25.551 Pain in right hip (principal); M25.552 Pain in left hip; E78.00 Pure hypercholesterolemia, unspecified; I10 Essential (primary) hypertension
CPT/HCPCS: 99214

== ENCOUNTER 2024-03-19 10:28 | Outpatient (REF) | payer MEDICARE, OTHER, SELFPAY ==
--- NOTE | ~2024-03-19 | XR_ITS ---
EXAMINATION: XR BILATERAL HIPS CLINICAL INFORMATION: Pain in right hip COMPARISON: None available. TECHNIQUE: AP and frog leg lateral views of each hip were obtained. FINDINGS: No fracture. Hip joint spaces are maintained. Alignment is anatomic. Small marginal osteophytes are seen in the inferior aspect of the femoral head. XR/XR hips ZEHRA min 3V IMPRESSION: No acute bony abnormality. Mild degenerative change.
== END 2024-03-19 10:29 | disposition home or self-care (01) ==
LOC: HO.HMGCX 10:28
PROVIDERS: PCP Internal Medicine; Visit Provider Internal Medicine
DX: M25.551 Pain in right hip (principal); M25.552 Pain in left hip
CPT/HCPCS: 73522

== ENCOUNTER 2024-05-07 08:26 | Outpatient (AMB) | payer MEDICARE, OTHER, SELFPAY ==
--- NOTE | 2024-05-07 08:27 | A.OFFVIS_ITS ---
Intake Visit Reasons: 3M Med Review- tadalafil/pentoxifylline Intake Note: Pt presents to the office today as a telehealth for a 3m med review. Blood thinners-none Urology meds-tadalafil Allergies No Known Allergies Allergy (Verified 05/07/24 08:27) Medication List - Last Reconciled 05/07/24 by Ovidio Marin MD amlodipine 5 mg PO DAILY atorvastatin 20 mg PO DAILY olmesartan 20 mg PO DAILY paroxetine HCl 10 mg PO DAILY pentoxifylline ER 400 mg PO BID 90 days tadalafil 5 mg PO DAILY 90 days HPI Comments Details: Cayden is a very pleasant male. He is a patient of Dr. Joseph. He is seen for the following urologic issues - lower urinary tract symptoms - gross hematuria - erectile dysfunction Telemedicine Evaluation 15 min Consultation Transfer To [facility] f/u - ED with Peyronie's Progressive erectile dysfunction which we had discussed previously Initiate tadalafil and pentoxifylline for Peyronie's Prior Concerns regarding leakage at the end of urination Information provided regarding male pelvic floor exercises Gross hematuria Episode October 2020 Resolved after 3 voids with urine Hematuria at the end of urination Risk factors Nonsmoker No known work place exposure. 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[employer] - [place] 02/04 renal cyst 2 cm cyst right side, left side normal Lower urinary tract symptoms [facility] ARA - 02/05 Prior therapy tamsulosin not effective Cystoscopy - 02/04 enlarged prostate with neovascularity PSA 09/05 1.4, 10/08 0.65, 02/06 0.8 Peyronie's disease 40 degree deviation to right-side Printed information provided previously [facility] Medical History Anxiety Colon cancer screening Squamous cell skin cancer, face Obesity Generalized anxiety disorder Hypercholesterolemia HTN (hypertension) Surgical History History of colonoscopy Family History Father S/P triple vessel bypass Liver failure Kidney failure CVD (cardiovascular disease) HTN (hypertension) Mother CVD (cardiovascular disease) Stroke Maternal Grandfather COPD (chronic obstructive pulmonary disease) Paternal Grandfather Pneumonia Sister No problems noted. Sister No problems noted. Son No problems noted. Social History Housing: House Are you a primary child care team lead to a significant other at home: No Do you presently have visiting nurse or other home services: No Alcohol intake: current Alcohol intake frequency: does not drink Patient Tobacco Use Status: Never used Tobacco e-Cigarette/Vaping Use: Never Used Second Hand Smoke Exposure: No service: No Current occupational status: retired Cognitive needs: No Hearing needs: No Vision needs: No Review of Systems Const All systems reviewed & are unremarkable except as noted in HPI and below Reports no additional complaints Resp Reports no additional complaints GI Reports no additional complaints Reports as per HPI Musc Reports no additional complaints Physical Exam Telemedicine evaluation Appropriate responses Regular breathing rate and rhythm HEENT Head: Yes normal to inspection Ears: hearing grossly normal bilaterally Eyes General: appearance normal, both eyes and all related structures Neck Neck: Yes normal visual inspection Chest Chest palpation & inspection: normal inspection of the chest Resp Effort & Inspection: normal respiratory effort and able to speak in complete sentences Telehealth Telehealth Location of provider rendering services: practice address Location of patient: address on file Patient Identification confirmed using: Name, : Yes Telehealth method: voice only Patient verbally consented to treatment: Yes Patient verbally consented to billing insurance company: Yes Patient informed of any privacy concerns related to visit: Yes Assessment & Plan Assessment & Plan (1) Erectile dysfunction: Code(s): N52.9 - Male erectile dysfunction, unspecified Category: Medical (2) Weak urinary stream: Code(s): R39.12 - Poor urinary stream Category: Medical (3) Peyronie's disease: Code(s): N48.6 - Induration penis plastica Category: Medical Plan Six-month follow-up Medications: Refilled tadalafil 5 mg PO DAILY 90 days 90 tabs 1RF sexual activity N52.9 - Male erectile dysfunction, unspecified pentoxifylline ER administer with meals 400 mg PO BID 90 days 180 tabs 1RF N52.9 - Male erectile dysfunction, unspecified Patient Instructions: Imaging studies, laboratory and physical exam results were discussed and reviewed in detail. No major barriers to patient understanding were identified. An opportunity to ask questions regarding the treatment plan was provided. All questions were answered. The patient expressed understanding and agreement with the above treatment plan. The patient is aware they should contact our office by phone for worsening of their current condition or the appearance of new urologic symptoms. Compliance is encouraged with any medications and followup testing that is ordered. It is a privilege to participate in the urologic care of your patient. If you have any questions or concerns regarding treatment for the above conditions, or other urologic issues, please do not hesitate to contact me. The office telephone contact is [phone]. This note is constructed using voice recognition software. While every effort has been made to ensure accuracy ware server errors may have been included. Yours sincerely, Dr Ovidio Marin MD, [facility] - Urology Providers of Expert, Compassionate Care for the Genitourinary System Coding Level of Care Code Tele Est Pt Level 3 (21200) Diagnoses Erectile dysfunction N52.9 Weak urinary stream R39.12 Peyronie's disease N48.6
== END 2024-05-07 09:21 | disposition home or self-care (01) ==
LOC: HO.HUSH 08:26
PROVIDERS: PCP Internal Medicine; Visit Provider Urology
DX: N52.9 Male erectile dysfunction, unspecified (principal); R39.12 Poor urinary stream; N48.6 Induration penis plastica
CPT/HCPCS: 99442

== ENCOUNTER → 2024-05-07 08:26 | Outpatient (BNVA) | payer MEDICARE, OTHER, SELFPAY | PROVIDERS: PCP Internal Medicine; Visit Provider Urology ==

== ENCOUNTER 2024-09-15 06:25 | Outpatient (REF) | payer MEDICARE, OTHER, SELFPAY ==
[2024-09-15 10:04] LABS: MANUAL DIFF FLAG NO
[2024-09-15 10:10] LABS: Basophils Absolute Auto 0.1 X10*3/uL (0.0-0.2); Basophils Percent Auto 1.2 % (0-2); Eosinophils Absolute Auto 0.1 X10*3/uL (0.0-0.4); Eosinophils Percent Auto 1.8 % (0-4); Hematocrit 44.2 % (42.0-52.0); Hemoglobin 14.7 g/dl (14.0-18.0); Imm Gran Abs Auto 0.01 X10*3/uL (0.00-0.03); Imm Gran Pct Auto 0.1 % (0.0-0.4); Lymphocytes Absolute Auto 2.2 X10*3/uL (1.2-4.9); Lymphocytes Percent Auto 28.5 % (20-40); Mean Corpuscular HGB Conc 33.3 g/dl (31.0-36.0); Mean Corpuscular Hemoglobin 28.5 pg (27.0-33.0); Mean Corpuscular Volume 85.8 fL (80.0-98.0); Mean Platelet Volume 10.7 fL (9.4-12.4); Monocytes Absolute Auto 0.6 X10*3/uL (0.1-1.2); Monocytes Percent Auto 7.3 % (2-11); Neutrophils Absolute Auto 4.7 x10*3/uL (2.0-8.3); Neutrophils Percent Auto 61.1 % (45-73); Platelet Count 283 X10*3/uL (160-400); Red Blood Count 5.15 X10*6/uL (4.60-5.80); Red Cell Distribution Width 13.5 % (11.0-16.0); White Blood Count 7.6 X10*3/uL (4.8-10.8)
[2024-09-15 10:52] LABS: Alanine Aminotransferase 34 U/L (0-40); Albumin Level 3.9 g/dL (3.5-5.0); Alkaline Phosphatase 145 U/L (39-117); Anion Gap 11 (12-20); Aspartate Amino Transferase 30 U/L (5-37); Bilirubin Total 1.1 mg/dL (0.0-1.0); Blood Urea Nitrogen 26 mg/dL (9-16); Carbon Dioxide 27 mmol/L (22-29); Chloride 108 mmol/L (96-108); Cholesterol 155 mg/dL (<200); Estimated Glomerular Filt Rate > 60; Glucose Fasting 91 mg/dL (60-99); HDL Cholesterol 57 mg/dL (>40); LDL Cholesterol Calculated 81 mg/dL (<100); Sodium 142 mmol/L (135-145); Total Protein 6.8 g/dL (6.5-8.0); Triglycerides 85 mg/dL (<150)
== END 2024-09-15 06:26 | disposition home or self-care (01) ==
LOC: HO.HMGCLDS 06:25
PROVIDERS: PCP Internal Medicine; Visit Provider Internal Medicine
DX: E78.00 Pure hypercholesterolemia, unspecified (principal); I10 Essential (primary) hypertension
CPT/HCPCS: 36415; 80053; 80061; 85025

== ENCOUNTER 2024-09-21 11:52 | Outpatient (AMB) | payer MEDICARE, OTHER, SELFPAY ==
[2024-09-21 11:58] VITALS: BP 128/80; PULSE 90; O2SAT 96; BMI 32.1
--- NOTE | 2024-09-21 11:58 | A.OFFPC_ITS ---
Vital Signs 09/21/24 11:58 Height 5 ft 11 in Weight 230 lb BMI 32.1 BP 128/80 Blood Pressure Location Lt brachial Position Sitting Pulse 90 Pulse Source Pulse Oximeter Pulse Oximetry (%) 96 Oxygen Delivery Method Room Air Intake Visit Reasons: Annual PE Intake Note: Pt is here today for PE. Allergies No Known Allergies Allergy (Verified 09/21/24 11:59) Medication List - Last Reconciled 09/21/24 by Kerry Mooney MD amlodipine 5 mg PO DAILY atorvastatin 20 mg PO DAILY olmesartan 20 mg PO DAILY paroxetine HCl 10 mg PO DAILY pentoxifylline ER 400 mg PO BID 90 days tadalafil 5 mg PO DAILY 90 days Tobacco use date assessed: 09/21/24 Fall risk assessment: No Falls in past year Last assessed Fall Risk: 09/21/24 Dental Screening Dental Screen Date: 03/19/24 HPI Annual PE HPI Details Patient presents for physical PFSH Medical History Anxiety Colon cancer screening Squamous cell skin cancer, face Obesity Generalized anxiety disorder Hypercholesterolemia HTN (hypertension) Surgical History History of colonoscopy Family History Father S/P triple vessel bypass Liver failure Kidney failure CVD (cardiovascular disease) HTN (hypertension) Mother CVD (cardiovascular disease) Stroke Maternal Grandfather COPD (chronic obstructive pulmonary disease) Paternal Grandfather Pneumonia Sister No problems noted. Sister No problems noted. Son No problems noted. Social History Housing: House Are you a primary rental boats caretaker to a significant other at home: No Do you presently have visiting nurse or other home services: No Alcohol intake: current Alcohol intake frequency: does not drink Patient Tobacco Use Status: Never used Tobacco e-Cigarette/Vaping Use: Never Used Second Hand Smoke Exposure: No service: No Current occupational status: retired Cognitive needs: No Hearing needs: No Vision needs: No Questionnaire PHQ-9 Over the last 2 weeks, how often have you been bothered by any of the following problems? 1. Little interest or pleasure in doing things: not at all 2. Feeling down, depressed, or hopeless: not at all 3. Trouble falling or staying asleep, or sleeping too much: not at all 4. Feeling tired or having little energy: not at all 5. Poor appetite or overeating: not at all 6. Feeling bad about yourself - or that you are a failure or have let yourself or your family down: not at all 7. Trouble concentrating on things, such as reading the newspaper or watching television: not at all 8. Moving or speaking so slowly that other people could have noticed. Or the opposite - being so fidgety or restless that you have been moving around a lot more than usual: not at all 9. Thoughts that you would be better off or of hurting yourself in some way: not at all Total score: 0 Depression Screening Interpretation: Negative Depression Screening Done: Yes [id number] - PHQ-9 Billing: Yes Source: Developed by Drs. Rafa Dee, Blaire Mas, Rc Ying and colleagues, with an educational mayelin from [employer]. Thrive Questionnaire Date Thrive assessed: 09/21/24 I am a: Patient What is your living situation today?: I have a steady place to live Within the past 12 months, did the food you bought not last and you didn't have the money to get more?: Never true Within the past 12 months, did you worry whether your food would run out before you got money to buy more?: Never true Do you have trouble paying for medicines?: No Do you have trouble getting transportation to medical appointments?: No Do you have trouble paying your heating and electricity bill?: No Do you have trouble taking care of your child, family member or friend?: No Do you have trouble with day-to-day activities such as bathing, preparing meals, shopping, managing finances, etc.?: No Are you currently unemployed and looking for a job?: No Are you interested in more education?: No Please select the resources that you would like help with: None Currently or been in a relationship where the following occur: No concerns reported THRIVE Score: 0 AUDIT C Alcohol Use Questionnaire (AUDIT-C) 1. How often do you have a drink containing alcohol?: 2-4 times a month 2. How many drinks containing alcohol do you have on a typical day when you are drinking?: 1 or 2 3. How often do you have six or more drinks on one occasion?: Never Total Score: 2 LILIA-7 AMB Questionnaire LILIA-7 Date LILIA - 7 assessed: 09/21/24 Feeling nervous, anxious, or on edge: 0 = Not at all Not being able to stop or control worryin = Not at all Worrying too much about different things: 0 = Not at all Trouble relaxin = Not at all Being so restless that it is hard to sit still: 0 = Not at all Becoming easily annoyed or irritable: 0 = Not at all Feeling afraid as if something awful might happen: 0 = Not at all Total LILIA-7 score (0-4 normal; 5-9 mild; 10-14 moderate; 15-21 severe): 0 Source: Developed by Drs. Rafa Dee, Blaire Mas, Rc Ying and colleagues, with an educational mayelin from [employer]. LILIA-7 Assessment Billing LILIA-7 Assessment Tool: LILIA-7 Assessment 82790 Review of Systems Const All systems reviewed & are unremarkable except as noted in HPI and below Eyes Reports no additional complaints ENT Reports no additional complaints Card Reports no additional complaints Resp Reports no additional complaints GI Reports no additional complaints Reports no additional complaints Physical exam (Primary Care) Vital Signs: Last Vital Signs Pulse 90 09/21/24 11:58 BP 128/80 09/21/24 11:58 Pulse Ox 96 09/21/24 11:58 Oxygen Delivery Method Room Air 09/21/24 11:58 BMI result Body Mass Index 32.1 Tobacco/Smoking Status: Tobacco use Status Tobacco use date assessed 09/21/24 09/21/24 12:02 Patient Tobacco Use Status Never used Tobacco 09/21/24 12:02 e-Cigarette/Vaping Use Never Used 09/21/24 12:02 PHQ-9: PHQ-9 Score PHQ-9: Total score 0 09/21/24 13:06 Depression Screening Interpretation: Negative Thrive Assessment: Date of Thrive Assessment Date Thrive assessed 09/21/24 09/21/24 12:02 Currently or been in a relationship where the following occur: No concerns reported Const General: no acute distress HENMT General nose exam: Normal external nose present Eyes General: appearance normal, both eyes and all related structures Resp Effort & Inspection: normal respiratory effort Auscultation: clear to auscultation bilaterally Cardio Rhythm: regular rhythm Heart sounds: S1 normal heart sound present and S2 normal heart sound present GI Inspection: Yes normal to inspection Palpation (GI): Soft to palpation Percussion: Yes normal to percussion Auscultation: normal bowel sounds Coding Level of Care Code Est Pt Prev Care >65y(64616) Diagnoses History of colonoscopy Z98.890 Hypercholesterolemia E78.00 HTN (hypertension) I10 Annual physical exam Z00.00 Additional Codes LILIA-7 Assessment Billing - LILIA-7 Assessment Tool: LILIA-7 Assessment 53889 ([id number]) Assessment & Plan Assessment & Plan (1) History of colonoscopy: Comment: 11/24/2008 colonoscopy negative for polyps dr laboy, negative Cologuard 12/2022 Code(s): Z98.890 - Other specified postprocedural states Category: Surgical Plan: Up-to-date with colon cancer screening (2) Hypercholesterolemia: Code(s): E78.00 - Pure hypercholesterolemia, unspecified Category: Medical Plan: Continue statin (3) HTN (hypertension): Code(s): I10 - Essential (primary) hypertension Category: Medical Plan: Continue current medications (4) Annual physical exam: Code(s): Z00.00 - Encounter for general adult medical examination without abnormal findings Category: Medical Plan: Well-balanced diet regular exercise weight loss discussed with the patient return for physical in 1 year with fasting labs before Orders: Orders Comprehensive [place]. Panel Fast 1 Year E78.00 - Pure hypercholesterolemia, unspecified, I10 - Essential (primary) hypertension, Z00.00 - Encounter for general adult medical examination without abnormal findings Lipid Panel 1 Year E78.00 - Pure hypercholesterolemia, unspecified, I10 - Essential (primary) hypertension, Z00.00 - Encounter for general adult medical examination without abnormal findings Complete Blood Count Auto Diff 1 Year E78.00 - Pure hypercholesterolemia, unspecified, I10 - Essential (primary) hypertension, Z00.00 - Encounter for general adult medical examination without abnormal findings UA w Microscopic 1 Year E78.00 - Pure hypercholesterolemia, unspecified, I10 - Essential (primary) hypertension, Z00.00 - Encounter for general adult medical examination without abnormal findings Medications: Refilled olmesartan 20 mg PO DAILY 90 tabs 3RF amlodipine 5 mg PO DAILY 90 tabs 3RF atorvastatin 20 mg PO DAILY 90 tabs 3RF paroxetine HCl 10 mg PO DAILY 90 tabs 3RF F41.1 - Generalized anxiety disorder
== END 2024-09-21 13:24 | disposition home or self-care (01) ==
LOC: HO.HMCC 11:53
PROVIDERS: PCP Internal Medicine; Visit Provider Internal Medicine
DX: Z00.00 Encounter for general adult medical examination without abnormal findings (principal); Z98.890 Other specified postprocedural states; E78.00 Pure hypercholesterolemia, unspecified; I10 Essential (primary) hypertension

== ENCOUNTER → 2024-09-21 11:52 | Outpatient (BNVA) | payer MEDICARE, OTHER, SELFPAY | PROVIDERS: PCP Internal Medicine; Visit Provider Internal Medicine | DX: Z00.00 Encounter for general adult medical examination without abnormal findings (principal); I10 Essential (primary) hypertension; E78.00 Pure hypercholesterolemia, unspecified; Z98.890 Other specified postprocedural states | CPT/HCPCS: 96127; 99397 ==

== ENCOUNTER 2024-11-03 13:46 | Outpatient (AMB) | payer MEDICARE, OTHER, SELFPAY ==
--- NOTE | 2024-11-03 13:50 | MHC.OFFVIS ---
Intake Visit Reasons: 6M Med Review Intake Note: Patient is Present for Follow Up Med Review Urology Medication: Pentoxifylline (No longer on tadalafil) Antibiotic Allergies: None Blood Thinners:None Patient states he is no longer taking Tadalafil as Dr Marin d/c last visit Contact Lens Fitter Required: No Accompanied by: Self / Same As Patient Allergies No Known Allergies Allergy (Verified 11/03/24 13:56) Medication List - Last Reconciled 11/03/24 by Ovidio Marin MD amlodipine 5 mg PO DAILY atorvastatin 20 mg PO DAILY olmesartan 20 mg PO DAILY paroxetine HCl 10 mg PO DAILY pentoxifylline ER 400 mg PO BID 90 days tadalafil 5 mg PO DAILY 90 days HPI Comments Details: Cayden is a very pleasant male. He is a patient of Dr. Joseph. He is seen for the following urologic issues - lower urinary tract symptoms - gross hematuria - erectile dysfunction Six-month follow-up Peyronie's erectile dysfunction Progressive erectile dysfunction which we had discussed previously Initial therapy tadalafil and pentoxifylline for Peyronie's Good response Erections adequate for activity May stop pentoxifylline therapy Prior Concerns regarding leakage at the end of urination Information provided regarding male pelvic floor exercises Gross hematuria Episode October 2020 Resolved after 3 voids with urine Hematuria at the end of urination Risk factors Nonsmoker No known work place exposure. 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[employer] - [place] 02/04 renal cyst 2 cm cyst right side, left side normal Lower urinary tract symptoms [facility] ARA - 02/05 Prior therapy tamsulosin not effective Cystoscopy - 02/04 enlarged prostate with neovascularity PSA 09/05 1.4, 10/08 0.65, 02/06 0.8 Peyronie's disease 40 degree deviation to right-side Printed information provided previously [facility] Medical History Anxiety Colon cancer screening Squamous cell skin cancer, face Obesity Generalized anxiety disorder Hypercholesterolemia HTN (hypertension) Surgical History History of colonoscopy Family History Father S/P triple vessel bypass Liver failure Kidney failure CVD (cardiovascular disease) HTN (hypertension) Mother CVD (cardiovascular disease) Stroke Maternal Grandfather COPD (chronic obstructive pulmonary disease) Paternal Grandfather Pneumonia Sister No problems noted. Sister No problems noted. Son No problems noted. Social History Housing: House Are you a primary career center advisor to a significant other at home: No Do you presently have visiting nurse or other home services: No Alcohol intake: current Alcohol intake frequency: does not drink Patient Tobacco Use Status: Never used Tobacco e-Cigarette/Vaping Use: Never Used Second Hand Smoke Exposure: No service: No Current occupational status: retired Cognitive needs: No Hearing needs: No Vision needs: No Review of Systems Const Denies chills and Denies fever(s) Card Reports no additional complaints and Denies syncope Resp Denies cough GI Denies abdominal pain and Denies heartburn Reports as per HPI and Denies change in libido Neuro Denies syncope Psych Denies change in libido Endo Denies change in libido Physical Exam Const General: cooperative, healthy appearing, comfortable and no acute distress Orientation/consciousness: patient oriented x3 HEENT Face and sinus: Yes normal facial exam Mouth: moist mucous membranes Neck Neck: Yes normal visual inspection, Yes full ROM and Yes trachea midline Chest Chest palpation & inspection: normal inspection of the chest Resp Effort & Inspection: normal respiratory effort, able to speak in complete sentences and no respiratory distress GI Inspection: Yes normal to inspection Back/Spine/Pelvis Cervical Spine: normal cervical lordosis Thoracic/Lumbar Spine: thoracic and lumbar spine normal to inspection Skin General skin exam: no rashes or lesions noted Neuro General: patient oriented x3, gait normal, tone normal and moves all extremities Extrem General: Yes normal to inspection and Yes capillary refill normal Assessment & Plan Assessment & Plan (1) Nephrolithiasis: Code(s): N20.0 - Calculus of kidney Category: Medical Plan Twelve month follow-up Orders: Orders US renal BI 12 Months N20.0 - Calculus of kidney Medications: Discontinued tadalafil Discontinued Reason: Patient Completed Course 5 mg PO DAILY 90 days 90 tabs 1RF sexual activity N52.9 - Male erectile dysfunction, unspecified pentoxifylline ER administer with meals Discontinued Reason: Patient Completed Course 400 mg PO BID 90 days 180 tabs 1RF N52.9 - Male erectile dysfunction, unspecified Patient Instructions: Imaging studies, laboratory and physical exam results were discussed and reviewed in detail. No major barriers to patient understanding were identified. An opportunity to ask questions regarding the treatment plan was provided. All questions were answered. The patient expressed understanding and agreement with the above treatment plan. The patient is aware they should contact our office by phone for worsening of their current condition or the appearance of new urologic symptoms. Compliance is encouraged with any medications and followup testing that is ordered. It is a privilege to participate in the urologic care of your patient. If you have any questions or concerns regarding treatment for the above conditions, or other urologic issues, please do not hesitate to contact me. The office telephone contact is [phone]. This note is constructed using voice recognition software. While every effort has been made to ensure accuracy vascular surgeon errors may have been included. Yours sincerely, Dr Ovidio Marin MD, [facility] - Urology Providers of Expert, Compassionate Care for the Genitourinary System Coding Level of Care Code Est Pt Level 3 (99240) Diagnoses Nephrolithiasis N20.0
== END 2024-11-03 14:26 | disposition home or self-care (01) ==
PROVIDERS: PCP Internal Medicine; Visit Provider Urology
DX: N20.0 Calculus of kidney (principal)
CPT/HCPCS: 99213

== ENCOUNTER → 2024-11-03 13:46 | Outpatient (BNVA) | payer MEDICARE, OTHER, SELFPAY | PROVIDERS: PCP Internal Medicine; Visit Provider Urology | DX: N20.0 Calculus of kidney (principal) | CPT/HCPCS: 99212 ==

== ENCOUNTER 2025-09-20 06:16 | Outpatient (REF) | payer MEDICARE, OTHER, SELFPAY ==
--- OUTSIDE RECORDS SUMMARY | 2025-09-20 06:25 | XMS_ITS | Clinical Summary ---
Author Organization [facility] Address [address] [place] [address] Care Team Providers Care Clinical Application Consultant Name Role Phone Eufemia Mckeon Primary Care Provider [phone] Allergies No known active allergies Medications Medication Sig Dispensed Refills Start Date End Date Status amLODIPine (NORVASC) tablet 10 mg Take 1 tablet (10 mg total) by mouth daily. 90 tablet 3 08/03/2018 Active PARoxetine (PAXIL) 10 MG tablet Take 1 tablet (10 mg total) by mouth daily. 90 tablet 3 08/03/2018 Active hydroCHLOROthiazide (HYDRODIURIL) tablet 25 mg Take 1 tablet (25 mg total) by mouth daily. 90 tablet 3 08/03/2018 Active atorvastatin (LIPITOR) tablet 10 mg Take 1 tablet (10 mg total) by mouth daily. 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 04/17/2018 H/O colonoscopy 11/17/2008 Overview: TIC, Int Hem Dr Deluna Anxiety Hypercholesteremia Hypertension Obesity Immunizations Name Administration Dates Next Due Tdap 05/11/2018 Family History Medical History Relation Name Comments Coronary artery disease Father Other Father COPD Maternal Grandfather Breast cancer Mother Stroke Mother Pneumonia Paternal Grandfather Relation Name Status Comments Father Maternal Grandfather Maternal Grandmother Mother Paternal Grandfather Paternal Grandmother Social History Tobacco Use Types Packs/Day Years Used Date Smoking Tobacco: Never Smokeless Tobacco: Never Alcohol Use Standard Drinks/Week Comments Yes 0 (1 standard drink = 0.6 oz pur e alcohol) rare Sex and Gender Information Value Date Recorded Sex Assigned at Not on file Gender Identity Not on file Sexual Orientation Not on file Last Filed Vital Signs Vital Sign Reading Time Taken Comments Blood Pressure 140/90 05/11/2018 8:48 AM EDT Pulse 67 05/11/2018 7:57 AM EDT Temperature 36.9 C (98.4 F) 05/11/2018 7:57 AM EDT Respiratory Rate 16 05/11/2018 7:57 AM EDT Oxygen Saturation 98% 05/11/2018 7:57 AM EDT Inhaled Oxygen Concentration - - Weight 103.6 kg (228 lb 8 oz) 05/11/2018 7:57 AM EDT Height 180.3 cm (5' 11 ) 05/11/2018 7:57 AM EDT Body Mass Index 31.87 05/11/2018 7:57 AM EDT Plan of Treatment Health Maintenance Due Date Last Done Comments Hepatitis C Screening 1955 COVID-19 Vaccine (#1) 02/05/1961 Pneumococcal Vaccine (1 of 2 - PCV) 02/05/1962 Preventative Health Evaluation 02/05/1974 Shingrix-Zoster Vaccine (1 of 2) 02/05/1975 Colon Cancer Screening (Colonoscopy) 11/24/2018 11/24/2008 Depression Screening 05/11/2019 05/11/2018 Fall Risk Assessment 02/05/2021 Influenza Vaccine (#1) 2025 DTap / Tdap / Td (2 - Td or Tdap) 05/11/2028 018 RSV Adult > 60+ Yrs or Pregn ant (1 - 1-dose 75+ series) 02/05/2031 Hepatitis B Vaccines Aged Out No long er eligible based on patient's age to complete this topic RSV Ped < 20 months Aged Out No longe r eligible based on patient's age to complete this topic Care Teams Clinical Application Consultant Relationship Specialty Start Date End Date Eufemia Mckeon DO PCP - General Family Medicine 12/23/17
[2025-09-20 10:29] LABS: MANUAL DIFF FLAG NO
[2025-09-20 10:39] LABS: Appearance Urine Clear; Glucose Urine UA Negative (Negative); PH 5.5 (5.0-9.0); Specific Gravity - Urine 1.025 (1.005-1.025); UMIC TRIGGER UA YES
[2025-09-20 10:40] LABS: Hematocrit 44.3 % (42.0-52.0); Hemoglobin 14.5 g/dl (14.0-18.0); Imm Gran Abs Auto 0.03 X10*3/uL (0.00-0.03); Imm Gran Pct Auto 0.4 % (0.0-0.4); Lymphocytes Absolute Auto 1.9 X10*3/uL (1.2-4.9); Mean Corpuscular HGB Conc 32.7 g/dl (31.0-36.0); Mean Corpuscular Hemoglobin 28.4 pg (27.0-33.0); Mean Corpuscular Volume 86.9 fL (80.0-98.0); NRBC Abs Auto 0.000 X10*3/uL (0.0-0.012); NRBC Pct Auto 0.0 /100WBC (0.0-0.2); Platelet Count 285 X10*3/uL (160-400); Red Blood Count 5.10 X10*6/uL (4.60-5.80); White Blood Count 7.6 X10*3/uL (4.8-10.8)
[2025-09-20 11:14] LABS: Alanine Aminotransferase 31 U/L (0-40); Albumin Level 4.1 g/dL (3.5-5.0); Alkaline Phosphatase 152 U/L (39-117); Anion Gap 10 (12-20); Aspartate Amino Transferase 26 U/L (5-37); Blood Urea Nitrogen 29 mg/dL (9-16); Calcium 9.0 mg/dL (8.4-10.2); Carbon Dioxide 28 mmol/L (22-29); Chloride 110 mmol/L (96-108); Cholesterol 158 mg/dL (<200); Estimated Glomerular Filt Rate > 60; HDL Cholesterol 53 mg/dL (>40); Potassium 4.6 mmol/L (3.3-5.1); Sodium 143 mmol/L (135-145); Total Protein 6.8 g/dL (6.5-8.0); Triglycerides 78 mg/dL (<150)
== END 2025-09-20 06:17 | disposition home or self-care (01) ==
LOC: HO.HMGCLDS 06:16
PROVIDERS: PCP Internal Medicine; Visit Provider Internal Medicine
DX: Z00.00 Encounter for general adult medical examination without abnormal findings (principal); E78.00 Pure hypercholesterolemia, unspecified; I10 Essential (primary) hypertension
CPT/HCPCS: 36415; 80053; 80061; 81001; 85025

== ENCOUNTER 2025-09-22 10:11 | Outpatient (AMB) | payer MEDICARE, OTHER, SELFPAY ==
[2025-09-22 10:18] VITALS: BP 124/86; PULSE 79; RESP 16; TEMP 36.7; O2SAT 98; BMI 32.6
--- NOTE | 2025-09-22 10:18 | MHC.PC.OV ---
Vital Signs 09/22/25 10:18 Height 5 ft 11 in Weight 234 lb BMI 32.6 BP 124/86 Blood Pressure Location Lt brachial Position Sitting Respiration 16 Pulse 79 Pulse Source Pulse Oximeter Temp 98.1 F Temp Source Oral Pulse Oximetry (%) 98 Oxygen Delivery Method Room Air Intake Visit Reasons: Annual Intake Note: Pt is here today for PE. Allergies No Known Allergies Allergy (Verified 09/22/25 10:21) Medication List - Last Reconciled 09/22/25 by Kerry Mooney MD amlodipine 5 mg PO DAILY atorvastatin 20 mg PO DAILY olmesartan 20 mg PO DAILY paroxetine HCl 10 mg PO DAILY Tobacco use date assessed: 09/22/25 Fall risk assessment: No Falls in past year Last assessed Fall Risk: 09/22/25 Dental Screening Dental Screen Date: 09/22/25 Did you have a dental visit in the last 12 months?: Yes Did you have a dental problem in the last 6 months where you did not have access to dental care?: No Was dental information given to patient?: Patient has dentist HPI Annual HPI Details Patient presents for a physical [facility] Medical History (Updated 09/22/25 @ 10:52 by Kerry Mooney MD) Nephrolithiasis Anxiety Colon cancer screening Squamous cell skin cancer, face Obesity Generalized anxiety disorder Hypercholesterolemia HTN (hypertension) Surgical History History of colonoscopy Family History Father S/P triple vessel bypass Liver failure Kidney failure CVD (cardiovascular disease) HTN (hypertension) Mother CVD (cardiovascular disease) Stroke Maternal Grandfather COPD (chronic obstructive pulmonary disease) Paternal Grandfather Pneumonia Sister No problems noted. Sister No problems noted. Son No problems noted. Social History Housing: House Are you a primary respite care provider to a significant other at home: No Do you presently have visiting nurse or other home services: No Alcohol intake: current Alcohol intake frequency: does not drink Patient Tobacco Use Status: Never used Tobacco e-Cigarette/Vaping Use: Never Used Second Hand Smoke Exposure: No service: No Current occupational status: retired Cognitive needs: No Hearing needs: No Vision needs: No Questionnaire PHQ-9 Over the last 2 weeks, how often have you been bothered by any of the following problems? 1. Little interest or pleasure in doing things: not at all 2. Feeling down, depressed, or hopeless: not at all 3. Trouble falling or staying asleep, or sleeping too much: not at all 4. Feeling tired or having little energy: not at all 5. Poor appetite or overeating: not at all 6. Feeling bad about yourself - or that you are a failure or have let yourself or your family down: not at all 7. Trouble concentrating on things, such as reading the newspaper or watching television: not at all 8. Moving or speaking so slowly that other people could have noticed. Or the opposite - being so fidgety or restless that you have been moving around a lot more than usual: not at all 9. Thoughts that you would be better off or of hurting yourself in some way: not at all Total score: 0 Depression Screening Interpretation: Negative Depression Screening Done: Yes 43925 - PHQ-9 Billing: Yes Source: Developed by Drs. Rafa Dee, Blaire Mas, Rc Ying and colleagues, with an educational mayelin from [employer]. Thrive Questionnaire Date Thrive assessed: 09/22/25 I am a: Patient What is your living situation today?: I have a steady place to live Within the past 12 months, did the food you bought not last and you didn't have the money to get more?: Never true Within the past 12 months, did you worry whether your food would run out before you got money to buy more?: Never true Do you have trouble paying for medicines?: No Do you have trouble getting transportation to medical appointments?: No Do you have trouble paying your heating and electricity bill?: No Do you have trouble taking care of your child, family member or friend?: No Do you have trouble with day-to-day activities such as bathing, preparing meals, shopping, managing finances, etc.?: No Are you currently unemployed and looking for a job?: No Are you interested in more education?: No Please select the resources that you would like help with: None Currently or been in a relationship where the following occur: No concerns reported THRIVE Score: 0 AUDIT C Alcohol Use Questionnaire (AUDIT-C) 1. How often do you have a drink containing alcohol?: Monthly or less 2. How many drinks containing alcohol do you have on a typical day when you are drinking?: 1 or 2 3. How often do you have six or more drinks on one occasion?: Never Total Score: 1 LILIA-7 AMB Questionnaire LILIA-7 Date LILIA - 7 assessed: 09/22/25 Feeling nervous, anxious, or on edge: 0 = Not at all Not being able to stop or control worryin = Not at all Worrying too much about different things: 0 = Not at all Trouble relaxin = Not at all Being so restless that it is hard to sit still: 0 = Not at all Becoming easily annoyed or irritable: 0 = Not at all Feeling afraid as if something awful might happen: 0 = Not at all Total LILIA-7 score (0-4 normal; 5-9 mild; 10-14 moderate; 15-21 severe): 0 Source: Developed by Drs. Rafa Dee, Blaire Mas, Rc Ying and colleagues, with an educational mayelin from [employer]. ILLIA-7 Assessment Billing LILIA-7 Assessment Tool: LILIA-7 Assessment 96045 Review of Systems Const All systems reviewed & are unremarkable except as noted in HPI and below Eyes Reports no additional complaints ENT Reports no additional complaints Resp Reports no additional complaints GI Reports no additional complaints Reports no additional complaints Physical exam (Primary Care) Vital Signs: Last Vital Signs Temp 98.1 F 09/22/25 10:18 Pulse 79 09/22/25 10:18 Resp 16 09/22/25 10:18 BP 124/86 09/22/25 10:18 Pulse Ox 98 09/22/25 10:18 Oxygen Delivery Method Room Air 09/22/25 10:18 BMI result Body Mass Index 32.6 Tobacco/Smoking Status: Tobacco use Status Tobacco use date assessed 09/22/25 09/22/25 10:21 Patient Tobacco Use Status Never used Tobacco 09/22/25 10:21 e-Cigarette/Vaping Use Never Used 09/22/25 10:21 PHQ-9: PHQ-9 Score PHQ-9: Total score 0 09/22/25 10:25 Depression Screening Interpretation: Negative Thrive Assessment: Date of Thrive Assessment Date Thrive assessed 09/22/25 09/22/25 10:25 Currently or been in a relationship where the following occur: No concerns reported Const General: no acute distress HENMT Head: Yes normal to inspection Face and sinus: Yes normal facial exam Mouth: Normal oral and palatal mucosa present Eyes General: appearance normal, both eyes and all related structures Resp Effort & Inspection: normal respiratory effort Auscultation: clear to auscultation bilaterally Cardio Rhythm: regular rhythm Heart sounds: S1 normal heart sound present and S2 normal heart sound present GI Inspection: Yes normal to inspection Palpation (GI): Soft to palpation Percussion: Yes normal to percussion Auscultation: normal bowel sounds Extrem General: Yes no clubbing, cyanosis or edema Coding Level of Care Code Est Pt Prev Care >65y(04433) Diagnoses HTN (hypertension) I10 Hypercholesterolemia E78.00 Nephrolithiasis N20.0 Annual physical exam Z00. Additional Codes LILIA-7 Assessment Billing - LILIA-7 Assessment Tool: LILIA-7 Assessment 58848 ([id number]) PHQ-9 - 35596 - PHQ-9 Billing: Yes ([id number]) Assessment & Plan Assessment & Plan (1) HTN (hypertension): Code(s): I10 - Essential (primary) hypertension Category: Medical Plan: Blood pressure is slightly elevated today, low-sodium diet increase physical activity weight loss discussed with the patient. He will continue the same medications for now. Patient will be starting medication for alopecia prescribed by tile grader who warned patient about side effects of dropping blood lowering blood pressure is. He will follow-up in 1 month (2) Hypercholesterolemia: Code(s): E78.00 - Pure hypercholesterolemia, unspecified Category: Medical Plan: Continue statin (3) Nephrolithiasis: Comment: Established with Urology Code(s): N20.0 - Calculus of kidney Category: Medical Plan: Follow-up with urology for annual ultrasound (4) Annual physical exam: Code(s): Z00.00 - Encounter for general adult medical examination without abnormal findings Category: Medical Plan: Well-balanced diet regular physical activity weight loss discussed with the patient. He will be due for repeat Cologuard next December
--- OUTSIDE RECORDS SUMMARY | 2025-09-22 11:54 | XMS_ITS | Patient Health Record ---
Author Organization [facility] Address [address] [place] [id number] Care Team Providers Care Outboard Motors Experimental Mechanic Name Role Phone Rafa Deluna Unavailable [phone] Reason For Referral No Information Plan Of Treatment No Information
--- OUTSIDE RECORDS SUMMARY | 2025-09-22 11:54 | XMS_ITS | Clinical Summary ---
Author Organization [facility] Address [address] [place] [address] Care Team Providers Care Amf Mechanic Name Role Phone Eufemia Mckeon Primary Care Provider [phone] Allergies No known active allergies Medications Medication [...] age to complete this topic Care Teams Amf Mechanic Relationship Specialty Start Date End Date Eufemia Mckeon DO PCP - General Family Medicine 12/23/17
== END 2025-09-22 10:55 | disposition home or self-care (01) ==
LOC: HO.HMCC 10:12
PROVIDERS: PCP Internal Medicine; Visit Provider Internal Medicine
DX: Z00.00 Encounter for general adult medical examination without abnormal findings (principal); I10 Essential (primary) hypertension; E78.00 Pure hypercholesterolemia, unspecified; N20.0 Calculus of kidney

== ENCOUNTER → 2025-09-22 10:11 | Outpatient (BNVA) | payer MEDICARE, OTHER, SELFPAY | PROVIDERS: PCP Internal Medicine; Visit Provider Internal Medicine | DX: Z00.00 Encounter for general adult medical examination without abnormal findings (principal); I10 Essential (primary) hypertension; E78.00 Pure hypercholesterolemia, unspecified; N20.0 Calculus of kidney; Z13.31 Encounter for screening for depression; Z13.39 Encounter for screening examination for other mental health and behavioral disorders | CPT/HCPCS: 96127; 99397 ==

== ENCOUNTER 2025-10-17 08:19 | Outpatient (REF) | payer MEDICARE, OTHER, SELFPAY ==
--- NOTE | ~2025-10-17 | US_ITS ---
CLINICAL HISTORY: N20.0 - Calculus of kidney US of kidneys Comparison: None provided Findings: Right kidney is normal in size, echogenicity and morphology, 10.5 cm in length. No calculus, mass or hydronephrosis. Left kidney is normal in size, echogenicity and morphology, 11.0 cm in length. No calculus or hydronephrosis. Avascular unilocular cysts 2.2 cm and 1.9 cm in the interpolar region. Limited color Doppler demonstrates unremarkable bilateral blood flow. Impression: Left renal cysts. No nephrolithiasis is seen. This document has been electronically signed by: Tracy Clark MD on 10/17/2025 13:21:39
--- OUTSIDE RECORDS SUMMARY | 2025-10-17 08:34 | XMS_ITS | Clinical Summary ---
Author Organization [facility] Address [address] [place] [address] Care Team Providers Care Epic Cadence Analyst Name Role Phone Eufemia Mckeon Primary Care Provider [phone] Allergies No known active allergies Medications Medication [...] age to complete this topic Care Teams Epic Cadence Analyst Relationship Specialty Start Date End Date Eufemia Mckeon DO PCP - General Family Medicine 12/23/17
--- OUTSIDE RECORDS SUMMARY | 2025-10-17 08:34 | XMS_ITS | Patient Health Record ---
Author Organization [facility] Address [address] [place] [id number] Care Team Providers Care Automobile Sales Consultant Name Role Phone Rafa Deluna Unavailable [phone] Reason For Referral No Information Plan Of Treatment No Information
== END 2025-10-17 08:20 | disposition home or self-care (01) ==
LOC: HO.HMGCX 08:19
PROVIDERS: PCP Internal Medicine; Visit Provider Urology
DX: N20.0 Calculus of kidney (principal)
CPT/HCPCS: 76775

== ENCOUNTER → 2025-10-17 08:24 | Outpatient (BNV) | payer MEDICARE, OTHER, SELFPAY | PROVIDERS: PCP Internal Medicine; Visit Provider Radiology Diagnostic Radiology | DX: N28.1 Cyst of kidney, acquired (principal) | CPT/HCPCS: 76775 ==

== ENCOUNTER 2025-11-01 11:19 | Outpatient (AMB) | payer MEDICARE, OTHER, SELFPAY ==
[2025-11-01 11:34] VITALS: BP 136/86; PULSE 94; RESP 16; O2SAT 97; BMI 32.6
--- NOTE | 2025-11-01 11:34 | A.OFFPC_ITS ---
Vital Signs 11/01/25 11:34 Height 5 ft 11 in Weight 234 lb BMI 32.6 BP 136/86 Blood Pressure Location Lt brachial Position Sitting Respiration 16 Pulse 94 Pulse Source Pulse Oximeter Pulse Oximetry (%) 97 Oxygen Delivery Method Room Air Intake Visit Reasons: 1 month follow up Intake Note: Pt is here today for 1 month follow up visit. Allergies No Known Allergies Allergy (Verified 11/01/25 11:34) Medication List - Last Reconciled 11/01/25 by Kerry Mooney MD amlodipine 5 mg PO DAILY atorvastatin 20 mg PO DAILY olmesartan 30 mg orally daily; paroxetine HCl 10 mg PO DAILY Tobacco use date assessed: 11/01/25 Last assessed Fall Risk: 11/01/25 Dental Screening Dental Screen Date: 09/22/25 HPI 1 month follow up HPI Details Pt presents for f/u HTN and hyperlipid, chronic anxiety, stable on meds. [facility] Medical History (Updated 11/01/25 @ 20:44 by Kerry Mooney MD) Nephrolithiasis Anxiety Colon cancer screening Squamous cell skin cancer, face Obesity Generalized anxiety disorder Hypercholesterolemia HTN (hypertension) Surgical History History of colonoscopy Family History Father S/P triple vessel bypass Liver failure Kidney failure CVD (cardiovascular disease) HTN (hypertension) Mother CVD (cardiovascular disease) Stroke Maternal Grandfather COPD (chronic obstructive pulmonary disease) Paternal Grandfather Pneumonia Sister No problems noted. Sister No problems noted. Son No problems noted. Social History Housing: House Are you a primary career and technology education teacher to a significant other at home: No Do you presently have visiting nurse or other home services: No Alcohol intake: current Alcohol intake frequency: does not drink Patient Tobacco Use Status: Never used Tobacco e-Cigarette/Vaping Use: Never Used Second Hand Smoke Exposure: No service: No Current occupational status: retired Cognitive needs: No Hearing needs: No Vision needs: No Questionnaire Thrive Questionnaire Date Thrive assessed: 09/15/25 I am a: Patient What is your living situation today?: I have a steady place to live Within the past 12 months, did the food you bought not last and you didn't have the money to get more?: Never true Within the past 12 months, did you worry whether your food would run out before you got money to buy more?: Never true Do you have trouble paying for medicines?: No Do you have trouble getting transportation to medical appointments?: No Do you have trouble paying your heating and electricity bill?: No Do you have trouble taking care of your child, family member or friend?: No Do you have trouble with day-to-day activities such as bathing, preparing meals, shopping, managing finances, etc.?: No Are you currently unemployed and looking for a job?: No Are you interested in more education?: No Please select the resources that you would like help with: None Currently or been in a relationship where the following occur: No concerns reported THRIVE Score: 0 LILIA-7 AMB Questionnaire LILIA-7 Date LILIA - 7 assessed: 09/22/25 Source: Developed by Drs. Rafa Dee, Blaire Mas, Rc Ying and colleagues, with an educational mayelin from [employer]. Review of Systems Const All systems reviewed & are unremarkable except as noted in HPI and below Eyes Reports no additional complaints ENT Reports no additional complaints Card Reports no additional complaints Resp Reports no additional complaints GI Reports no additional complaints Reports no additional complaints Physical exam (Primary Care) Vital Signs: Last Vital Signs Pulse 94 11/01/25 11:34 Resp 16 11/01/25 11:34 BP 136/86 11/01/25 11:34 Pulse Ox 97 11/01/25 11:34 Oxygen Delivery Method Room Air 11/01/25 11:34 BMI result Body Mass Index 32.6 Tobacco/Smoking Status: Tobacco use Status Tobacco use date assessed 11/01/25 11/01/25 11:35 Patient Tobacco Use Status Never used Tobacco 11/01/25 11:34 e-Cigarette/Vaping Use Never Used 11/01/25 11:34 Thrive Assessment: Date of Thrive Assessment Date Thrive assessed 09/15/25 11/01/25 11:34 Currently or been in a relationship where the following occur: No concerns reported Const General: no acute distress HENMT Head: Yes normal to inspection Face and sinus: Yes normal facial exam Throat: Yes posterior oropharynx normal Eyes General: appearance normal, both eyes and all related structures Neck Neck: Yes no lymphadenopathy and Yes supple Resp Effort & Inspection: normal respiratory effort Auscultation: clear to auscultation bilaterally Cardio Rhythm: regular rhythm Heart sounds: S1 normal heart sound present and S2 normal heart sound present GI Inspection: Yes normal to inspection Palpation (GI): Soft to palpation Percussion: Yes normal to percussion Auscultation: normal bowel sounds Coding Level of Care Code Est Pt Level 4 (82897) Diagnoses HTN (hypertension) I10 Hypercholesterolemia E78.00 Anxiety F41.9 Assessment & Plan Assessment & Plan (1) HTN (hypertension): Code(s): I10 - Essential (primary) hypertension Category: Medical Plan: increase Olmesartan to 30 mg, f/u 1 month (2) Hypercholesterolemia: Code(s): E78.00 - Pure hypercholesterolemia, unspecified Category: Medical Plan: cont statin (3) Anxiety: Code(s): F41.9 - Anxiety disorder, unspecified Category: Medical Plan: cont Paroxetine Orders: Orders Basic Metabolic Panel 2 Weeks I10 - Essential (primary) hypertension Medications: Changed From olmesartan 20 mg PO DAILY 90 tabs 3RF To olmesartan 30 mg orally daily; 135 tabs 3RF Refilled paroxetine HCl 10 mg PO DAILY 90 tabs 3RF F41.1 - Generalized anxiety disorder amlodipine 5 mg PO DAILY 90 tabs 3RF
--- OUTSIDE RECORDS SUMMARY | 2025-11-01 14:57 | XMS_ITS | Clinical Summary ---
Author Organization [facility] Prior to 04/16/[address] [place] [address] Care Team Providers Care Mechanical Engineering Technician Name Role Phone Eufemia Mckeon DO Primary Care Provider [phone] Allergies No known active allergies Medications Medication [...] age to complete this topic Care Teams Mechanical Engineering Technician Relationship Specialty Start Date End Date Mike, Eufemia J, DO PCP - General Family Medicine 12/23/17
--- OUTSIDE RECORDS SUMMARY | 2025-11-01 14:57 | XMS_ITS | Patient Health Record ---
Author Organization [facility] Address [address] [place] [id number] Care Team Providers Care Him Clerk Name Role Phone Rafa Deluna Unavailable [phone] Reason For Referral No Information Plan Of Treatment No Information
== END 2025-11-01 12:19 | disposition home or self-care (01) ==
LOC: HO.HMCC 11:20
PROVIDERS: PCP Internal Medicine; Visit Provider Internal Medicine
DX: I10 Essential (primary) hypertension (principal); E78.00 Pure hypercholesterolemia, unspecified; F41.9 Anxiety disorder, unspecified

== ENCOUNTER → 2025-11-01 11:19 | Outpatient (BNVA) | payer MEDICARE, OTHER, SELFPAY | PROVIDERS: PCP Internal Medicine; Visit Provider Internal Medicine | DX: I10 Essential (primary) hypertension (principal); E78.00 Pure hypercholesterolemia, unspecified; F41.1 Generalized anxiety disorder | CPT/HCPCS: 99212 ==

== ENCOUNTER 2025-11-03 10:34 | Outpatient (AMB) | payer MEDICARE, OTHER, SELFPAY ==
--- NOTE | 2025-11-03 10:37 | A.OFFVIS_ITS ---
Intake Visit Reasons: 1y/US SET (UA ONLY IF Sx) Intake Note: Reason for Visit: 1y Ultrasound Urology Meds: None Blood Thinners: None Labs: None Imaging: Renal Ultrasound 10/17/2025 Last PVR: None Ceo Na Required: No Accompanied by: Self / Same As Patient Allergies No Known Allergies Allergy (Verified 11/03/25 10:48) HPI Comments Details: Cayden is a very pleasant male. He is a patient of Dr. Joseph. He is seen for the following urologic issues - lower urinary tract symptoms - gross hematuria - erectile dysfunction Twelve month follow-up Recent renal ultrasound for renal cysts Stable Progressive erectile dysfunction which we had discussed previously Good response Erections adequate for activity Prior Concerns regarding leakage at the end of urination Information provided regarding male pelvic floor exercises Emphasis on resistance work to maintain muscle mass and palate Gross hematuria Episode October 2020 Resolved after 3 voids with urine Hematuria at the end of urination Risk factors Nonsmoker No known work place exposure. 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[employer] - [place] 02/04 renal cyst 2 cm cyst right side, left side normal Lower urinary tract symptoms Greenlight ARA - 02/05 Prior therapy tamsulosin not effective Cystoscopy - 02/04 enlarged prostate with neovascularity PSA 09/05 1.4, 10/08 0.65, 02/06 0.8 Peyronie's disease 40 degree deviation to right-side Printed information provided previously Good response to vacuum therapy with antioxidant PFSH Medical History Nephrolithiasis Anxiety Colon cancer screening Squamous cell skin cancer, face Obesity Generalized anxiety disorder Hypercholesterolemia HTN (hypertension) Surgical History History of colonoscopy Family History Father S/P triple vessel bypass Liver failure Kidney failure CVD (cardiovascular disease) HTN (hypertension) Mother CVD (cardiovascular disease) Stroke Maternal Grandfather COPD (chronic obstructive pulmonary disease) Paternal Grandfather Pneumonia Sister No problems noted. Sister No problems noted. Son No problems noted. Social History Housing: House Are you a primary healthcare economics consultant to a significant other at home: No Do you presently have visiting nurse or other home services: No Alcohol intake: current Alcohol intake frequency: does not drink Patient Tobacco Use Status: Never used Tobacco e-Cigarette/Vaping Use: Never Used Second Hand Smoke Exposure: No service: No Current occupational status: retired Cognitive needs: No Hearing needs: No Vision needs: No Review of Systems Const Denies chills and Denies fever(s) Card Reports no additional complaints and Denies syncope Resp Denies cough GI Denies abdominal pain and Denies heartburn Reports as per HPI and Denies change in libido Neuro Denies syncope Psych Denies change in libido Endo Denies change in libido Physical Exam Const General: cooperative, healthy appearing, comfortable and no acute distress Orientation/consciousness: patient oriented x3 HEENT Face and sinus: Yes normal facial exam Mouth: moist mucous membranes Neck Neck: Yes normal visual inspection, Yes full ROM and Yes trachea midline Chest Chest palpation & inspection: normal inspection of the chest Resp Effort & Inspection: normal respiratory effort, able to speak in complete sentences and no respiratory distress GI Inspection: Yes normal to inspection Back/Spine/Pelvis Cervical Spine: normal cervical lordosis Thoracic/Lumbar Spine: thoracic and lumbar spine normal to inspection Skin General skin exam: no rashes or lesions noted Neuro General: patient oriented x3, gait normal, tone normal and moves all extremities Extrem General: Yes normal to inspection and Yes capillary refill normal Assessment & Plan Assessment & Plan (1) BPH loc w urin obs/LUTS: Code(s): N40.1 - Benign prostatic hyperplasia with lower urinary tract symptoms Category: Medical (2) Nocturia more than twice per night: Code(s): R35.1 - Nocturia Category: Medical Plan Twelve month follow-up renal ultrasound Orders: Orders US renal BI 12 Months N20.0 - Calculus of kidney Patient Instructions: This note is constructed using voice recognition software. While every effort has been made to ensure accuracy water supervisor errors may have been included. Imaging studies, laboratory and physical exam results were discussed and reviewed in detail. No major barriers to patient understanding were identified. An opportunity to ask questions regarding the treatment plan was provided. All questions were answered. The patient expressed understanding and agreement with the above treatment plan. The patient is aware they should contact our office by phone for worsening of their current condition or the appearance of new urologic symptoms. Compliance is encouraged with any medications and followup testing that is ordered. It is a privilege to participate in the urologic care of your patient. If you have any questions or concerns regarding treatment for the above conditions, or other urologic issues, please do not hesitate to contact me. The office telep alysha contact is [phone]. Sincerely, Dr Ovidio Marin MD, [facility] - Urology Compassionate Specialist Care for the Genitourinary System Coding Level of Care Code Est Pt Level 4 (84689) Add On Problem Visit Only Diagnoses BPH loc w urin obs/LUTS N40.1 Nocturia more than twice per night R35.1
--- OUTSIDE RECORDS SUMMARY | 2025-11-03 13:17 | XMS_ITS | Patient Health Record ---
Author Organization [facility] Address [address] [place] [id number] Care Team Providers Care Sericulture Teacher Name Role Phone Rafa Deluna Unavailable [phone] Reason For Referral No Information Plan Of Treatment No Information
--- OUTSIDE RECORDS SUMMARY | 2025-11-03 13:18 | XMS_ITS | Clinical Summary ---
Author Organization [facility] Prior to 04/16/[address] [place] [id number] Care Team Providers Care Desktop Publishing Associate Name Role Phone Eufemia Mckeon DO Primary Care Provider [phone] Allergies No known active allergies Medications Medication [...] age to complete this topic Care Teams Desktop Publishing Associate Relationship Specialty Start Date End Date Mike, Eufemia J, DO PCP - General Family Medicine 12/23/17
== END 2025-11-03 11:18 | disposition home or self-care (01) ==
LOC: HO.HUSH 10:35
PROVIDERS: PCP Internal Medicine; Visit Provider Urology
DX: N40.1 Benign prostatic hyperplasia with lower urinary tract symptoms (principal); R35.1 Nocturia
CPT/HCPCS: 99214; G2211

== ENCOUNTER → 2025-11-03 10:34 | Outpatient (BNVA) | payer MEDICARE, OTHER, SELFPAY | PROVIDERS: PCP Internal Medicine; Visit Provider Urology | DX: N40.1 Benign prostatic hyperplasia with lower urinary tract symptoms (principal); R35.1 Nocturia; N28.1 Cyst of kidney, acquired; N48.6 Induration penis plastica | CPT/HCPCS: 99212 ==